=== PATIENT | male | born 1960 | race Caucasian/White ===

== ENCOUNTER 2016-08-04 06:41 | Emergency (ER) | payer BC ==
[2016-08-04 06:53] VITALS: BP 128/92
[2016-08-04] MEDS ORDERED: methylPREDNISolone Sodium Succinate 125 MG/2 ML SDV IM ONE (07:16)
[2016-08-04] MEDS ORDERED: HYDROmorphone 1 MG/ML Syringe IM ONE (07:17)
--- NOTE | 2016-08-04 07:24 | EDM.PDOC ---
ED HPI GENERAL MEDICAL PROBLEM - General Chief Complaint: Lower Extremity Injury/Pain Stated Complaint: SWOLLEN/PAINFUL FEET Time Seen by Provider: 08/04/16 06:55 Source of Information: Reports: Patient History Limitations: Reports: No Limitations - History of Present Illness INITIAL COMMENTS - FREE TEXT/NARRATIVE: The patient presents with a gout flair. He has pain in both feet and pain to his right 2nd MCP. This started last night. He has no fever, chills, cough, chest pain, shortness of breath, abdominal pain nausea or vomiting. He has a kidney transplant about 12 years ago. He has no had a flair of his gout in awhile. He has no injury. Onset: Gradual Duration: Day(s): Location: Reports: Upper Extremity, Right (2nd MCP), Lower Extremity, Left, Lower Extremity, Right Quality: Reports: Sharp Severity: Severe Improves with: Reports: None Worsens with: Reports: Movement Associated Symptoms: Reports: No Other Symptoms Bilateral Feet Pain Score (Numeric/FACES): 10 - Related Data Allergies Allergy/AdvReac Type Severity Reaction Status Date / Time allopurinol Allergy Hives Verified 08/04/16 06:54 cephalexin Allergy Hives Verified 08/04/16 06:54 levofloxacin Allergy Hives Verified 08/04/16 06:54 Home Meds: Home Meds Metoprolol Succinate 0 mg PO DAILY 11/22/14 [History] Tacrolimus [Prograf] 1 mg PO BID 11/22/14 [History] Warfarin Sodium [Coumadin] 7.5 mg PO SUMOTUWETHFR 11/22/14 [History] Warfarin [Coumadin] 5 mg PO SA 11/22/14 [History] predniSONE 20 mg PO DAILY 11/22/14 [History] Cyclobenzaprine [Flexeril] 10 mg PO BID PRN 08/04/16 [History] Hydrocodone/Acetaminophen [[place]ren 5-325] 1 tab PO TID PRN 08/04/16 [History] Indomethacin 50 mg PO TID PRN #20 capsule 08/04/16 [Rx] Past Medical History HEENT History: Reports: Impaired Vision Cardiovascular History: Reports: Hypertension Gastrointestinal History: Reports: GERD Genitourinary History: Reports: Other (See Below) Other Genitourinary History: right kidney transplant 2005 - Past Surgical History GI Surgical History: Reports: Appendectomy Social & Family History - Tobacco Use Smoking Status *Q: Former Smoker Years of Tobacco use: 15 Used Tobacco, but Quit: Yes Month Tobacco Last Used: 20 years Second Hand Smoke Exposure: No - Caffeine Use Caffeine Use: Reports: Coffee - Alcohol Use Days Per Week of Alcohol Use: 0 - Recreational Drug Use Recreational Drug Use: No Review of Systems - Review of Systems Review Of Systems: See Below Constitutional: Reports: No Symptoms Eyes: Reports: No Symptoms Ears: Reports: No Symptoms Nose: Reports: No Symptoms Mouth/Throat: Reports: No Symptoms Respiratory: Reports: No Symptoms Cardiovascular: Reports: No Symptoms GI/Abdominal: Reports: No Symptoms Genitourinary: Reports: No Symptoms Musculoskeletal: Reports: Other (Bilateral foot pain and right 2nd CMP pain) ED EXAM, GENERAL - Physical Exam Exam: See Below Exam Limited By: No Limitations General Appearance: Alert, No Apparent Distress Ears: Normal External Exam Nose: Normal Inspection Head: Atraumatic, Normocephalic Neck: Normal Inspection Respiratory/Chest: No Respiratory Distress, Lungs Clear, Normal Breath Sounds Cardiovascular: Regular Rate, Rhythm, No Edema, No Murmur GI/Abdominal: Soft, Non-Tender, No Organomegaly, No Mass Back Exam: Normal Inspection Extremities: Other (Pain upon palpation to the right and left foot with no edema or erythema. Pain upon palpation to the right, 2nd MCP joint with mild erythema and edema.) Course - Vital Signs Last Recorded V/S: Last Vital Signs Temp 98.2 F 08/04/16 06:50 Pulse 101 H 08/04/16 06:50 Resp 20 08/04/16 06:50 BP 128/92 H 08/04/16 06:50 Pulse Ox 96 08/04/16 06:50 - Orders/Labs/Meds Meds: Medications Discontinued Medications Generic Name Dose Route Start Last Admin Trade Name Freq PRN Reason Stop Dose Admin Hydromorphone HCl 1 mg 08/04/16 07:17 08/04/16 07:25 Dilaudid IM 08/04/16 07:18 1 mg ONETIME ONE Administration Methylprednisolone Sodium Succinate 125 mg 08/04/16 07:16 08/04/16 07:25 Solu-Medrol IM 08/04/16 07:17 125 mg ONETIME ONE Administration - Re-Assessments/Exams Free Text/Narrative Re-Assessment/Exam: 08/04/16 07:22 I ordered solu-medrol 125mg IM and dilaudid 1mg IM. I will get him on percocet and indomethacin. 08/04/16 08:00 He is feeling better. I will discharge him home. 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 Take the percocet as needed for pain. Take the indomethycin 3 times a day as needed for pain. Follow up with your doctor in 1 week. Please return if you are worse.
== END 2016-08-04 08:18 | disposition home or self-care (01) ==
LOC: JD.ED 06:41
DX: M10.441 Other secondary gout, right hand (principal); M79.671 Pain in right foot; M79.672 Pain in left foot; I10 Essential (primary) hypertension; K21.9 Gastro-esophageal reflux disease without esophagitis; Z87.891 Personal history of nicotine dependence; Z90.49 Acquired absence of other specified parts of digestive tract; Z94.0 Kidney transplant status; Z79.01 Long term (current) use of anticoagulants; Z79.899 Other long term (current) drug therapy; Z88.1 Allergy status to other antibiotic agents; Z88.8 Allergy status to other drugs, medicaments and biological substances
CPT/HCPCS: 96372; 99283; J1170; J2930

== ENCOUNTER 2017-01-06 04:23 | Emergency (ER) | payer BC ==
[2017-01-06 04:34] VITALS: BP 134/89
[2017-01-06] MEDS ORDERED: Ketorolac 30 MG/ML SDV IM ONE (05:08)
--- NOTE | 2017-01-06 05:17 | EDM.PDOC ---
ED HPI GENERAL MEDICAL PROBLEM - General Chief Complaint: Upper Extremity Injury/Pain Stated Complaint: shoulder pain Time Seen by Provider: 01/06/17 04:47 Source of Information: Reports: Patient, RN Notes Reviewed - History of Present Illness INITIAL COMMENTS - FREE TEXT/NARRATIVE: 56-year-old male with left shoulder pain that started 2 days ago. The pain is primarily anterior aspect of left shoulder. No recent fall or injury. Pain is much worse with motion. Ever he also does have pain at rest. He states he had rotator cuff type surgery on the shoulder many years ago. No distal weakness, numbness or tingling. No chest pain or difficulty breathing. Left Shoulder Pain Score (Numeric/FACES): 10 - Related Data Allergies Allergy/AdvReac Type Severity Reaction Status Date / Time allopurinol Allergy Hives Verified 01/06/17 04:38 cephalexin Allergy Hives Verified 01/06/17 04:38 levofloxacin Allergy Hives Verified 01/06/17 04:38 Home Meds: Home Meds Metoprolol Succinate 0 mg PO DAILY 11/22/14 [History] Tacrolimus [Prograf] 1 mg PO BID 11/22/14 [History] Warfarin Sodium [Coumadin] 7.5 mg PO MOTUWE 11/22/14 [History] Warfarin [Coumadin] 5 mg PO SUTHFRSA 11/22/14 [History] predniSONE 20 mg PO DAILY 11/22/14 [History] Cyclobenzaprine [Flexeril] 10 mg PO BID PRN 08/04/16 [History] Multivitamin [Multi-Vitamin Daily] 1 tab PO DAILY 01/06/17 [History] Non-Formulary Medication [NF Drug] 1 tab PO ASDIRECTED 01/06/17 [History] Omeprazole Magnesium [Prilosec Otc] 20 mg PO DAILY 01/06/17 [History] Past Medical History HEENT History: Reports: Impaired Vision Cardiovascular History: Reports: Hypertension Gastrointestinal History: Reports: GERD Genitourinary History: Reports: Other (See Below) Other Genitourinary History: right kidney transplant 2005 - Past Surgical History GI Surgical History: Reports: Appendectomy Social & Family History - Family History Family Medical History: Noncontributory - Tobacco Use Smoking Status *Q: Never Smoker Years of Tobacco use: 15 Used Tobacco, but Quit: Yes Month Tobacco Last Used: 20 years Second Hand Smoke Exposure: No - Caffeine Use Caffeine Use: Reports: Coffee - Alcohol Use Days Per Week of Alcohol Use: 7 Number of Drinks Per Day: 1 Total Drinks Per Week: 7 - Recreational Drug Use Recreational Drug Use: No Review of Systems - Review of Systems Review Of Systems: See Below Constitutional: Denies: Chills, Fever Mouth/Throat: Reports: No Symptoms Respiratory: Denies: Shortness of Breath Cardiovascular: Denies: Chest Pain GI/Abdominal: Denies: Abdominal Pain, Nausea, Vomiting Musculoskeletal: Reports: Shoulder Pain (Left). Denies: Joint Swelling Skin: Reports: No Symptoms. Denies: Erythema Neurological: Denies: Numbness, Tingling, Weakness ED EXAM, GENERAL - Physical Exam Exam: See Below General Appearance: Alert, Mild Distress Throat/Mouth: Normal Inspection Head: Atraumatic. No: Facial Swelling Neck: Supple, Full Range of Motion Respiratory/Chest: No Respiratory Distress, Lungs Clear, Normal Breath Sounds Cardiovascular: Regular Rate, Rhythm Extremities: Other (Patient is very tender over the left anterior shoulder and also does have mild tenderness laterally. Pain is worse with all types of motion. No warmth erythema or visible deformity, remainder of arm is nontender, elbow nontender. No Distal swelling.). No: Increased Warmth, Redness Neurological: Alert, Oriented, No Motor/Sensory Deficits Skin Exam: Warm, Dry, Normal Color Course - Vital Signs Last Recorded V/S: Last Vital Signs Temp 98.6 F 01/06/17 04:31 Pulse 102 H 01/06/17 04:31 Resp 16 01/06/17 04:31 BP 134/89 01/06/17 04:31 Pulse Ox 98 01/06/17 04:31 - Orders/Labs/Meds Meds: Medications Discontinued Medications Generic Name Dose Route Start Last Admin Trade Name Sunil PRN Reason Stop Dose Admin Ketorolac Tromethamine 30 mg 01/06/17 05:08 01/06/17 05:17 Toradol IM 01/06/17 05:09 30 mg ONETIME ONE Administration - Re-Assessments/Exams Free Text/Narrative Re-Assessment/Exam: 01/06/17 05:25 Have given 1 dose of Toradol 30 mg IM. He has been taking Tylenol without meaningful relief. He has history of a kidney transplant so I cannot put him on regular dose anti-inflammatories. I have written a prescription to [facility] for hydrocodone to take one tablet 4-6 hours when necessary severe pain. Discharge instructions as documented Departure - Departure Time of Disposition: 05:14 Disposition: Home, Self-Care 01 Condition: Fair Clinical Impression: Shoulder pain, left Qualifiers: Chronicity: acute Qualified Code(s): M25.512 - Pain in left shoulder - Discharge Information Referrals: Perfecto Andrade Jr, MD [Primary Care Provider] - Forms: ED Department Discharge Additional Instructions: Rest arm and shoulder, alternate ice and heat several times daily, Tylenol every 6-8 hours for mild to moderate discomfort or hydrocodone if needed for more severe pain. Do not take Tylenol and hydrocodone at the same time, do not drive or work when taking hydrocodone. See Dr. Andrade at clinic in 3-4 days if not much better within 2-3 days. Physical therapy is an option that also may be of help if not resolving with rest and time.
== END 2017-01-06 05:40 | disposition home or self-care (01) ==
LOC: JD.ED 04:23
DX: M25.512 Pain in left shoulder (principal); Z88.1 Allergy status to other antibiotic agents; Z79.01 Long term (current) use of anticoagulants; Z79.899 Other long term (current) drug therapy
CPT/HCPCS: 96372; 99283; J1885

== ENCOUNTER 2017-04-22 10:57 | Emergency (ER) | payer BC ==
[2017-04-22 11:14] VITALS: BP 125/92
[2017-04-22] MEDS ORDERED: Sodium Chloride 0.9% 1,000 ML IV ONE (11:41)
[2017-04-22] MEDS ORDERED: Sodium Chloride 0.9% 10 ML Syringe FLUSH PRN (11:41)
[2017-04-22] MEDS ORDERED: Ondansetron 4 MG/2 ML SDV IVPUSH ONE (11:44)
[2017-04-22] MEDS ORDERED: HYDROmorphone 0.5 MG/0.5 ML SYRINGE IVPUSH ONE (11:44)
--- NOTE | 2017-04-22 12:04 | EDM.PDOC ---
ED HPI GENERAL MEDICAL PROBLEM - General Chief Complaint: Upper Extremity Injury/Pain Stated Complaint: LEFT HAND AND ELBOW SWELLING Time Seen by Provider: 04/22/17 11:28 Source of Information: Reports: Patient History Limitations: Reports: No Limitations - History of Present Illness INITIAL COMMENTS - FREE TEXT/NARRATIVE: Patient is a 57 y/o male with history of kidney transplant on prednisone who presents to the ED. complaining of left shoulder, elbow and thumb pain for the past 3 days. Symptoms have progressively gotten worse. Has increased pain with flexing/extending elbow and thumb. Noted increased warmth to elbow and thumb with faint redness. Pain is mostly to the posterior aspect of the elbow. He is unable to close his right hand due to swelling. No history of DVT is on coumadin with therapeutic INR 2 wks ago for mechanical aortic valve. Shunt to the left bicep is unaffected. Hx of gout that has in the past affected his feet. He is on no nsaids due to kidney issues. Takes no allopurinol since he is allergic to it. Pain is sharp, constant, with waxing and waning. He has no history of cellulitis. He denies any fever, sob, n/v, chills, rigors, or any additional complaints. left arm/elbow/hand Pain Score (Numeric/FACES): 10 - Related Data Allergies Allergy/AdvReac Type Severity Reaction Status Date / Time allopurinol Allergy Hives Verified 04/22/17 11:14 cephalexin Allergy Hives Verified 04/22/17 11:14 levofloxacin Allergy Hives Verified 04/22/17 11:14 Home Meds: Home Meds Metoprolol Succinate 0 mg PO DAILY 11/22/14 [History] Tacrolimus [Prograf] 1 mg PO BID 11/22/14 [History] Warfarin Sodium [Coumadin] 7.5 mg PO MOTUWE 11/22/14 [History] Warfarin [Coumadin] 5 mg PO SUTHFRSA 11/22/14 [History] predniSONE 20 mg PO DAILY 11/22/14 [History] Cyclobenzaprine [Flexeril] 10 mg PO BID PRN 08/04/16 [History] Multivitamin [Multi-Vitamin Daily] 1 tab PO DAILY 01/06/17 [History] Omeprazole Magnesium [Prilosec Otc] 20 mg PO DAILY 01/06/17 [History] Acetaminophen/HYDROcodone [[place] 325-5 MG] 1 tab PO Q6H PRN #15 tablet 04/22/17 [Rx] Escitalopram [Lexapro] 10 mg PO DAILY 04/22/17 [History] Ferrous Sulfate 325 mg PO BIDMEALS 04/22/17 [History] Lisinopril 5 mg PO DAILY 04/22/17 [History] Past Medical History HEENT History: Reports: Impaired Vision Cardiovascular History: Reports: Hypertension Other Cardiovascular History: AVR, CABG x 1 2011 Gastrointestinal History: Reports: GERD Genitourinary History: Reports: Renal Disease, Other (See Below) Other Genitourinary History: right kidney transplant 2006 Musculoskeletal History: Reports: Other (See Below) Other Musculoskeletal History: uppar arm pain Psychiatric History: Reports: Depression Hematologic History: Reports: Anticoagulation Therapy Dermatologic History: Reports: Other (See Below) Other Dermatologic History: rashes - Past Surgical History GI Surgical History: Reports: Appendectomy Musculoskeletal Surgical History: Reports: Shoulder Surgery Social & Family History - Family History Family Medical History: Noncontributory - Tobacco Use Smoking Status *Q: Former Smoker Years of Tobacco use: 15 Used Tobacco, but Quit: No Month Tobacco Last Used: 20 years Second Hand Smoke Exposure: No - Caffeine Use Caffeine Use: Reports: Coffee - Alcohol Use Days Per Week of Alcohol Use: 7 Number of Drinks Per Day: 1 Total Drinks Per Week: 7 - Recreational Drug Use Recreational Drug Use: No Review of Systems - Review of Systems Review Of Systems: See Below Constitutional: Reports: No Symptoms Respiratory: Reports: No Symptoms, Pleuritic Chest Pain (left lateral/upper chest discomfort, subsiding. ). Denies: Shortness of Breath Cardiovascular: Reports: No Symptoms GI/Abdominal: Reports: No Symptoms Genitourinary: Reports: No Symptoms Musculoskeletal: Reports: Arm Pain (Left elbow and also left thumb/wrist.), Joint Swelling (left mcp) Skin: Reports: Erythema (Posterior aspect of left elbow, and MCP of the left thumb with swelling.) Neurological: Reports: No Symptoms. Denies: Numbness, Tingling ED EXAM, GENERAL - Physical Exam Exam: See Below Exam Limited By: No Limitations General Appearance: Alert, WD/WN, No Apparent Distress Ears: Hearing Grossly Normal Nose: Normal Inspection Throat/Mouth: Normal Voice, No Airway Compromise Head: Atraumatic, Normocephalic Neck: Normal Inspection, Supple, Non-Tender, Full Range of Motion Respiratory/Chest: No Respiratory Distress, Lungs Clear, Normal Breath Sounds, No Accessory Muscle Use, Chest Non-Tender Cardiovascular: Normal Peripheral Pulses, Regular Rate, Rhythm GI/Abdominal: Normal Bowel Sounds, Soft, Non-Tender, No Organomegaly Course - Vital Signs Last Recorded V/S: Last Vital Signs Temp 98.2 F 04/22/17 11:02 Pulse 100 04/22/17 11:02 Resp 18 04/22/17 11:02 BP 125/92 H 04/22/17 11:02 Pulse Ox 96 04/22/17 11:02 - Orders/Labs/Meds Labs: Laboratory Tests 04/22/17 04/22/17 04/22/17 Range/Units 11:50 11:50 11:50 WBC 14.01 H (4.23-9.07) K/mm3 RBC 4.52 L (4.63-6.08) M/mm3 Hgb 13.6 L (13.7-17.5) gm/L Hct 40.5 (40.1-51.0) % MCV 89.6 (79.0-92.2) fl MCH 30.1 (25.7-32.2) pg MCHC 33.6 (32.2-35.5) g/dl RDW Std Deviation 41.5 (35.1-43.9) fL Plt Count 190 (163-337) K/mm3 MPV 10.8 (9.4-12.3) fl Neut % (Auto) 74.8 H (34.0-67.9) % Lymph % (Auto) 12.5 L (21.8-53.1) % [place] % (Auto) 11.2 (5.3-12.2) % Eos % (Auto) 0.8 (0.8-7.0) Baso % (Auto) 0.3 (0.1-1.2) % Neut # (Auto) 10.49 H (1.78-5.38) K/mm3 Lymph # (Auto) 1.75 (1.32-3.57) K/mm3 [place] # (Auto) 1.57 H (0.30-0.82) K/mm3 Eos # (Auto) 0.11 (0.04-0.54) K/mm3 Baso # (Auto) 0.04 (0.01-0.08) K/mm3 Manual Slide Review Abnormal smear ESR 38 H (0-15) mm/hr PT (8.0-13.0) SECONDS INR Sodium 135 L (136-145) mEq/L Potassium 4.4 (3.5-5.1) mEq/L Chloride 100 (98-107) mEq/L Carbon Dioxide 21 (21-32) mEq/L Anion Gap 18.4 H (5-15) BUN 25 H (7-18) mg/dL Creatinine 1.3 (0.7-1.3) mg/dL Est Cr Clr Drug Dosing 43.27 mL/min Estimated GFR (MDRD) 57 (>60) mL/min BUN/Creatinine Ratio 19.2 H (14-18) Glucose 112 H (74-106) mg/dL Lactic Acid (0.4-2.0) mmol/L Uric Acid 9.3 H (3.5-7.2) mg/dL Calcium 9.4 (8.5-10.1) mg/dL Total Bilirubin 1.1 H (0.2-1.0) mg/dL AST 19 (15-37) U/L ALT 22 (16-63) U/L Alkaline Phosphatase 60 (46-116) U/L C-Reactive Protein 12.5 H* (<1.0) mg/dL Total Protein 7.5 (6.4-8.2) g/dl Albumin 3.5 (3.4-5.0) g/dl Globulin 4.0 gm/dL Albumin/Globulin Ratio 0.9 L (1-2) 04/22/17 04/22/17 Range/Units 11:50 11:50 WBC (4.23-9.07) K/mm3 RBC (4.63-6.08) M/mm3 Hgb (13.7-17.5) gm/L Hct (40.1-51.0) % MCV (79.0-92.2) fl MCH (25.7-32.2) pg MCHC (32.2-35.5) g/dl RDW Std Deviation (35.1-43.9) fL Plt Count (163-337) K/mm3 MPV (9.4-12.3) fl Neut % (Auto) (34.0-67.9) % Lymph % (Auto) (21.8-53.1) % [place] % (Auto) (5.3-12.2) % Eos % (Auto) (0.8-7.0) Baso % (Auto) (0.1-1.2) % Neut # (Auto) (1.78-5.38) K/mm3 Lymph # (Auto) (1.32-3.57) K/mm3 [place] # (Auto) (0.30-0.82) K/mm3 Eos # (Auto) (0.04-0.54) K/mm3 Baso # (Auto) (0.01-0.08) K/mm3 Manual Slide Review ESR (0-15) mm/hr PT 16.6 H (8.0-13.0) SECONDS INR 1.54 Sodium (136-145) mEq/L Potassium (3.5-5.1) mEq/L Chloride (98-107) mEq/L Carbon Dioxide (21-32) mEq/L Anion Gap (5-15) BUN (7-18) mg/dL Creatinine (0.7-1.3) mg/dL Est Cr Clr Drug Dosing mL/min Estimated GFR (MDRD) (>60) mL/min BUN/Creatinine Ratio (14-18) Glucose (74-106) mg/dL Lactic Acid 0.9 (0.4-2.0) mmol/L Uric Acid (3.5-7.2) mg/dL Calcium (8.5-10.1) mg/dL Total Bilirubin (0.2-1.0) mg/dL AST (15-37) U/L ALT (16-63) U/L Alkaline Phosphatase (46-116) U/L C-Reactive Protein (<1.0) mg/dL Total Protein (6.4-8.2) g/dl Albumin (3.4-5.0) g/dl Globulin gm/dL Albumin/Globulin Ratio (1-2) Meds: Medications Discontinued Medications Generic Name Dose Route Start Last Admin Trade Name Freq PRN Reason Stop Dose Admin Hydromorphone HCl 0.5 mg 04/22/17 11:44 04/22/17 11:55 Dilaudid IVPUSH 04/22/17 11:45 0.5 mg ONETIME ONE Administration Sodium Chloride 1,000 mls @ 250 mls/hr 04/22/17 11:41 04/22/17 11:50 Normal Saline IV 04/22/17 15:40 250 mls/hr ONETIME ONE Administration Ondansetron HCl 4 mg 04/22/17 11:44 04/22/17 11:54 Zofran IVPUSH 04/22/17 11:45 4 mg ONETIME ONE Administration Sodium Chloride 10 ml 04/22/17 11:41 04/22/17 11:50 Saline Flush FLUSH 10 ml ASDIRECTED PRN Administration Keep Vein Open - Re-Assessments/Exams Free Text/Narrative Re-Assessment/Exam: IV established with normal saline 250 mL per hour, Dilaudid 0.5 mg IVP, Zofran 4 mg IVP. Initial labs and studies will include CBC, chem 14, blood culture 2, CRP, CBC, ESR, uric acid, chest x-ray one view, and VL duplex of the left upper extremity. Called Dr. Butcher and left message. Dr. Butcher has arrived to the E.D. Evaluated the patient in the E.D. Suggested Tapping the joint to rule out septic joint and or gout flareup. Tapped the joint utilizing sterile precautions with no fluid present. No complications noted. CXR: no acute findings noted. Left upper extremity venous ultrasound: Duplex and color flow imaging was obtained of the left internal jugular, subclavian, axillary, brachial, basilic, cephalic, radial and ulnar veins. Findings: Cephalic vein is occluded. This contains echogenic material and is felt to be due to chronic occlusion with fibrosis. Other veins show normal phasic flow, augmentation and compression. Additional images were obtained overlying the olecranon process. Heterogeneous abnormality is seen posterior to the olecranon process measuring 3.2 x 2.0 x 2.7 cm. Uncertain as to etiology. Differential includes hematoma as well as infection, soft tissue mass felt to be unlikely. Prominent scar tissue is also within the differential. Impression: 1. Heterogeneous abnormality with measurements as noted above, adjacent to the olecranon process. 2. No evidence of acute venous thrombosis within the left upper extremity. 3. 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 Labs reviewed: White blood count slightly elevated 14.01, hemoglobin 13.6, neutrophil percentage is 74.8, neutrophil number is 10.49, ESR is 38, AG 18.4, by mouth 25, creatinine 1.3, glucose 112, lactic acid 0.9, CRP 12.5. Uric Acid was 9.3. Differential diagnosis cellulitis/gout attack. [address] Butcher. Reviewed labs and ultrasound with him. Suggested follow-up in the clinic tomorrow with him for reevaluation. Sling the affected extremity with pain control. Will add a medro Dosepak on top of his daily prednisone doses. In addition he'll receive [place] on discharge. Patient will not receive any NSAIDs due to his kidney condition. 04/22/17 15:28 INR is 1.54. This INR is subtherapeutic. He should be a 2.5-3.5 with mechanical aortic valve replacement. Prior to results patient had already left. I tried calling the number provided but the post male was full. Will try again. I did speak with the patient. Advised him to take warfarin 7.5 mg Friday, , Friday, and Friday. Take 5 mg remainder of the days. Follow-up with PCP this Friday for recheck of INR. Additional modification of warfarin dosage would be initiated at that time. Departure - Departure Time of Disposition: 14:59 Disposition: Home, Self-Care 01 Condition: Good Clinical Impression: Elbow pain, left, Pain of left thumb Gout attack Qualifiers: Gout site: hand Gout etiology: other secondary cause Laterality: right Qualified Code(s): M10.441 - Other secondary gout, right hand Cellulitis Qualifiers: Site of cellulitis: extremity Site of cellulitis of extremity: upper extremity Laterality: right Qualified Code(s): L03.113 - Cellulitis of right upper limb - Discharge Information Prescriptions: Acetaminophen/HYDROcodone [[place] 325-5 MG] 1 tab PO Q6H PRN #15 tablet PRN Reason: Pain (Severe 7-10) Instructions: Cellulitis, Adult, How to Use a Sling, [id number], Cellulitis, Adult, [id number], Gout, Pain Medicine Instructions, [id number] Referrals: Perfecto Andrade Jr, MD [Primary Care Provider] - Forms: ED Department Discharge Additional Instructions: Wear the arm sling as needed for left elbow discomfort. Unclear if you have a gout attack or this is cellulitis. Dr. Butcher will see you tomorrow in his clinic. Call and make an appointment today to be seen. Will increase your prednisone with a Medrol Dosepak. Take as prescribed. This has been phoned into your pharmacy. pharmacy. In addition for pain take [place] one tab every 6 hours as needed for pain. Do not drive while taking the [place]. Return to the ED if you develop any new or worsening symptoms as discussed. ED JOINT ASPIRATION PROCEDURE - Joint Apsiration/Arthrocentesis Site: left elbow Skin prep: Chlorhexidine (Hibiciens) Aspiration needle size: 18g Aspirate appearance: other (none) Dressing: adhesive dressing Complications: No Progress/Comments: Joint aspiration approach lateral aspect marked out by Dr. Butcher with no signs of infection present.
--- NOTE | 2017-04-22 12:27 | CR ---
Chest: Frontal view of the chest was obtained. Comparison: Prior chest x-ray of 01/19/11. Heart size is normal. Tortuous thoracic aorta is seen. Slight atelectasis is noted within the left base. Lungs otherwise are clear. Previous left shoulder surgery is noted. Previous sternotomy is noted. Impression: 1. Atelectasis within the left lung base. Other incidental findings. 2. Nothing acute is seen. Diagnostic code #2
--- NOTE | 2017-04-22 14:44 | US ---
Left upper extremity venous ultrasound: Duplex and color flow imaging was obtained of the left internal jugular, subclavian, axillary, brachial, basilic, cephalic, radial and ulnar veins. Findings: Cephalic vein is occluded. This contains echogenic material and is felt to be due to chronic occlusion with fibrosis. Other veins show normal phasic flow, augmentation and compression. Additional images were obtained overlying the olecranon process. Heterogeneous abnormality is seen posterior to the olecranon process measuring 3.2 x 2.0 x 2.7 cm. Uncertain as to etiology. Differential includes hematoma as well as infection, soft tissue mass felt to be unlikely. Prominent scar tissue is also within the differential. Impression: 1. Heterogeneous abnormality with measurements as noted above, adjacent to the olecranon process. 2. No evidence of acute venous thrombosis within the left upper extremity. 3. 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 Diagnostic code #2
== END 2017-04-22 15:13 | disposition home or self-care (01) ==
LOC: JD.ED 10:57
DX: L03.113 Cellulitis of right upper limb (principal); M10.441 Other secondary gout, right hand; I82.890 Acute embolism and thrombosis of other specified veins; I10 Essential (primary) hypertension; K21.9 Gastro-esophageal reflux disease without esophagitis; Z88.1 Allergy status to other antibiotic agents; Z88.8 Allergy status to other drugs, medicaments and biological substances; Z79.01 Long term (current) use of anticoagulants; Z79.899 Other long term (current) drug therapy; Z95.1 Presence of aortocoronary bypass graft; Z98.890 Other specified postprocedural states; Z87.891 Personal history of nicotine dependence
CPT/HCPCS: 20605; 36415; 71045; 80053; 83605; 84550; 85025; 85610; 85652; 86140; 87040; 93971; 96361; 96374; 96375; 99284; J1170; J2405; J7040; J7050

== ENCOUNTER 2018-03-01 16:44 | Emergency (ER) | payer BC, OTHER ==
--- NOTE | 2018-03-01 17:10 | EDM.PDOC ---
ED HPI GENERAL MEDICAL PROBLEM - General Chief Complaint: Neurological Problem Stated Complaint: weakness Rt arm Time Seen by Provider: 03/01/18 17:00 Source of Information: Reports: Patient History Limitations: Reports: No Limitations - History of Present Illness INITIAL COMMENTS - FREE TEXT/NARRATIVE: 58-year-old male presents to the ED with acute onset of right arm weakness. He developed sudden onset of flaccid hemiparesis of his right upper extremity. He states he can still walk although his balance and gait were not quite normal. Her about 15-20 minutes before coming to the ED. No associated headache nausea or vomiting. Of note the patient is on Coumadin chronically due to an artificial mechanical aortic valve. This was placed in 2001. Last INR was checked about a month ago. Is due for check this coming week. No recent falls or closed head injuries. Onset: Today Onset Date: 03/01/18 Onset Time: 16:40 Duration: Minutes: Location: Reports: Upper Extremity, Right (Right upper extremity was completely flaccid initially but started to regain some function in fact could hold it against the effect of gravity at the time of my exam.), Lower Extremity, Right ( Right lower extremity was also a little weak as he had some difficulty ambulating into the department.) Severity: Moderate (Patient states the right upper extremity is somewhat numb and tingly.) Improves with: Reports: Other (Dea started to improve once he hit the ED.) Worsens with: Reports: None Context: Denies: Activity, Exercise, Lifting, Sick Contact, Trauma, Other Associated Symptoms: Denies: No Other Symptoms, Chest Pain, Cough, cough w sputum, Diaphoresis, Fever/Chills, Headaches, Loss of Appetite, Malaise, Nausea/ Vomiting, Rash, Seizure, Shortness of Breath, Syncope, Weakness 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) (None.) - Related Data Allergies Allergy/AdvReac Type Severity Reaction Status Date / Time allopurinol Allergy Hives Verified 12/17/17 15:10 cephalexin Allergy Hives Verified 12/17/17 15:10 levofloxacin Allergy Hives Verified 12/17/17 15:10 Home Meds: Home Meds Metoprolol Succinate 0 mg PO DAILY 11/22/14 [History] Tacrolimus [Prograf] 1 mg PO BID 11/22/14 [History] Warfarin Sodium [Coumadin] 7.5 mg PO MOTUWE 11/22/14 [History] Warfarin [Coumadin] 5 mg PO SUTHFRSA 11/22/14 [History] predniSONE 20 mg PO DAILY 11/22/14 [History] Cyclobenzaprine [Flexeril] 10 mg PO BID PRN 08/04/16 [History] Multivitamin [Multi-Vitamin Daily] 1 tab PO DAILY 01/06/17 [History] Omeprazole Magnesium [Prilosec Otc] 20 mg PO DAILY 01/06/17 [History] Acetaminophen/HYDROcodone [[place] 325-5 MG] 1 tab PO Q6H PRN #15 tablet 04/22/17 [Rx] Escitalopram [Lexapro] 10 mg PO DAILY 04/22/17 [History] Ferrous Sulfate 325 mg PO BIDMEALS 04/22/17 [History] Lisinopril 5 mg PO DAILY 04/22/17 [History] Febuxostat [Uloric] 40 mg PO DAILY #30 tablet 12/17/17 [Rx] oxyCODONE HCl/Acetaminophen [Percocet 5-325 mg Tablet] 1 - 2 each PO Q4H PRN # 30 tablet 12/17/17 [Rx] Past Medical History HEENT History: Reports: Impaired Vision Cardiovascular History: Reports: Heart Valve Replacement (Category aortic valve replacement and CABG in 2011), Hypertension Other Cardiovascular History: AVR, CABG x 1 2011 Gastrointestinal History: Reports: GERD Genitourinary History: Reports: Renal Disease, Other (See Below) Other Genitourinary History: right kidney transplant 2005. He was AV shunt left biceps area is no longer functioning. Musculoskeletal History: Reports: Other (See Below) Other Musculoskeletal History: uppar arm pain Psychiatric History: Reports: Depression Hematologic History: Reports: Anticoagulation Therapy Dermatologic History: Reports: Other (See Below) Other Dermatologic History: rashes - Past Surgical History GI Surgical History: Reports: Appendectomy Musculoskeletal Surgical History: Reports: Shoulder Surgery Social & Family History - Family History Family Medical History: Noncontributory - Caffeine Use Caffeine Use: Reports: Coffee - Living Situation & Occupation Living situation: Reports: Single, with Significant Other Occupation: Employed [employer] [facility] - Review of Systems Review Of Systems: See Below Constitutional: Denies: Fever, Chills, Malaise, Weakness, Fatigue, Decreased Appetite, Weight Loss HEENT: Reports: No Symptoms Respiratory: Reports: No Symptoms Cardiovascular: Reports: No Symptoms. Denies: Chest Pain, Blood Pressure Problem Endocrine: Reports: No Symptoms GI/Abdominal: Reports: No Symptoms : Reports: No Symptoms Musculoskeletal: Reports: Other Skin: Reports: No Symptoms (Right upper extremity weakness.) Neurological: Reports: Numbness, Paresthesia (upper extremity), Tingling (Right upper extremity), Difficulty Walking (Very minimal difficulty walking.), Weakness. Denies: Change in Speech, Gait Disturbance Psychiatric: Reports: No Symptoms (Weakness with flaccidity initially of his right upper extremity.) Hematologic/Lymphatic: Reports: No Symptoms Immunologic: Reports: No Symptoms ED EXAM, NEURO - Physical Exam Exam: See Below Exam Limited By: No Limitations General Appearance: Alert, WD/WN, No Apparent Distress Eye Exam: Bilateral Eye: Normal Inspection Throat/Mouth: Normal Inspection, Normal Lips, Normal Teeth, Normal Oropharynx Head Exam: Atraumatic, Normocephalic Neck: Normal Inspection, Supple, Non-Tender, Full Range of Motion. No: Lymphadenopathy (L), Lymphadenopathy (R) Respiratory/Chest: No Respiratory Distress, Lungs Clear, Normal Breath Sounds, No Accessory Muscle Use Cardiovascular: Normal Peripheral Pulses, Regular Rate, Rhythm, No Edema, No Gallop, No Rub, Other (Healed midline sternal sternotomy incision. Has a audible click at the aortic valve listing post.) GI/Abdominal: Normal Bowel Sounds, Soft, Non-Tender, No Organomegaly, No Abnormal Bruit, No Mass, Pelvis Stable Neurological: Alert, Normal Mood/Affect, Normal Dorsiflexion, CN II-XII Intact, Oriented x 3, Abnormal Finger to Nose, Abnormal Motor (Grade 3 motor power and tone right upper extremity can hold it above gravity but is weak and ataxic. He cannot do finger to nose assessment on the right side.), Other (Right lower extremity had normal motor power and tone. He is very ticklish feet and therefore Babinski's were equivocal.). No: Normal Reflexes DTR: 1+: Bicep (R), 2+: Bicep (L), Patella (R), Patella (L), Achilles (R), Achilles (L) Back Exam: Normal Inspection, Full Range of Motion Extremities: Normal Inspection, Normal Range of Motion, Non-Tender, No Pedal Edema Psychiatric: Normal Affect, Normal Mood Skin Exam: Warm, Dry, Intact, Normal Color, No Rash EKG INTERPRETATION EKG Date: 03/01/18 Time: 17:12 Rhythm: NSR Rate (Beats/Min): 95 Finger: LAD-Left Finger Deviation (Mild left axis deviation of -12) P-Wave: Enlarged (Consider left atrial hypertrophy.) QRS: Other (Early R-wave transition suggesting right ventricular hypertrophy versus septal hypertrophy pattern. Near Q-wave 3 and aVF. Severe old inferior wall myocardial infarction) ST-T: Other (Diffuse early repolarization pattern. T wave flattening and slight inversion aVL only.) QT: Normal EKG Interpretation Comments: Abnormal ECG Course - Vital Signs Last Recorded V/S: Last Vital Signs Temp 36.5 C 03/01/18 17:00 Pulse 98 03/01/18 17:00 Resp 20 03/01/18 17:00 BP 142/99 H 03/01/18 17:00 Pulse Ox 95 03/01/18 17:00 - Orders/Labs/Meds Orders: Active Orders 24 hr Category Date Time Status EKG Documentation Completion [RC] STAT Care 03/01/18 17:13 Active ABO/RH TYPE [BBK] Stat Lab 03/01/18 17:00 Results PATIENT RETYPE [BBK] Stat Lab 03/01/18 17:00 Results Labs: Laboratory Tests 03/01/18 03/01/18 03/01/18 Range/Units 17:00 17:00 17:00 WBC 10.44 H (4.23-9.07) K/mm3 RBC 4.89 (4.63-6.08) M/mm3 Hgb 14.5 (13.7-17.5) gm/L Hct 43.5 (40.1-51.0) % MCV 89.0 (79.0-92.2) fl MCH 29.7 (25.7-32.2) pg MCHC 33.3 (32.2-35.5) g/dl RDW Std Deviation 46.6 H (35.1-43.9) fL Plt Count 183 (163-337) K/mm3 MPV 10.6 (9.4-12.3) fl Neutrophils % (Manual) 73 H (40-60) % Band Neutrophils % 0 (0-10) % Lymphocytes % (Manual) 17 L (20-40) % Atypical Lymphs % 0 % Monocytes % (Manual) 5 (2-10) % Eosinophils % (Manual) 3 (0.8-7.0) % Basophils % (Manual) 2 H (0.2-1.2) Platelet Estimate Adequate RBC Morph Comment Normal PT 17.6 H (9.5-12.1) SECONDS INR 1.63 APTT (24-31) SECONDS Sodium 138 (136-145) mEq/L Potassium 4.0 (3.5-5.1) mEq/L Chloride 105 (98-107) mEq/L Carbon Dioxide 20 L (21-32) mEq/L Anion Gap 17.0 H (5-15) BUN 29 H (7-18) mg/dL Creatinine 1.5 H (0.7-1.3) mg/dL Est Cr Clr Drug Dosing 57.48 mL/min Estimated GFR (MDRD) 48 (>60) mL/min BUN/Creatinine Ratio 19.3 H (14-18) Glucose 139 H (74-106) mg/dL Calcium 8.8 (8.5-10.1) mg/dL Magnesium (1.8-2.4) mg/dl Total Bilirubin 0.6 (0.2-1.0) mg/dL AST 15 (15-37) U/L ALT 28 (16-63) U/L Alkaline Phosphatase 73 (46-116) U/L NT-Pro-B Natriuret Pep (0-125) pg/mL Total Protein 7.0 (6.4-8.2) g/dl Albumin 3.6 (3.4-5.0) g/dl Globulin 3.4 gm/dL Albumin/Globulin Ratio 1.1 (1-2) Blood Type 03/01/18 03/01/18 03/01/18 Range/Units 17:00 17:00 17:00 WBC (4.23-9.07) K/mm3 RBC (4.63-6.08) M/mm3 Hgb (13.7-17.5) gm/L Hct (40.1-51.0) % MCV (79.0-92.2) fl MCH (25.7-32.2) pg MCHC (32.2-35.5) g/dl RDW Std Deviation (35.1-43.9) fL Plt Count (163-337) K/mm3 MPV (9.4-12.3) fl Neutrophils % (Manual) (40-60) % Band Neutrophils % (0-10) % Lymphocytes % (Manual) (20-40) % Atypical Lymphs % % Monocytes % (Manual) (2-10) % Eosinophils % (Manual) (0.8-7.0) % Basophils % (Manual) (0.2-1.2) Platelet Estimate RBC Morph Comment PT (9.5-12.1) SECONDS INR APTT (24-31) SECONDS Sodium (136-145) mEq/L Potassium (3.5-5.1) mEq/L Chloride (98-107) mEq/L Carbon Dioxide (21-32) mEq/L Anion Gap (5-15) BUN (7-18) mg/dL Creatinine (0.7-1.3) mg/dL Est Cr Clr Drug Dosing mL/min Estimated GFR (MDRD) (>60) mL/min BUN/Creatinine Ratio (14-18) Glucose (74-106) mg/dL Calcium (8.5-10.1) mg/dL Magnesium 1.3 L (1.8-2.4) mg/dl Total Bilirubin (0.2-1.0) mg/dL AST (15-37) U/L ALT (16-63) U/L Alkaline Phosphatase (46-116) U/L NT-Pro-B Natriuret Pep 157 H (0-125) pg/mL Total Protein (6.4-8.2) g/dl Albumin (3.4-5.0) g/dl Globulin gm/dL Albumin/Globulin Ratio (1-2) Blood Type A POSITIVE 03/01/18 Range/Units 17:00 WBC (4.23-9.07) K/mm3 RBC (4.63-6.08) M/mm3 Hgb (13.7-17.5) gm/L Hct (40.1-51.0) % MCV (79.0-92.2) fl MCH (25.7-32.2) pg MCHC (32.2-35.5) g/dl RDW Std Deviation (35.1-43.9) fL Plt Count (163-337) K/mm3 MPV (9.4-12.3) fl Neutrophils % (Manual) (40-60) % Band Neutrophils % (0-10) % Lymphocytes % (Manual) (20-40) % Atypical Lymphs % % Monocytes % (Manual) (2-10) % Eosinophils % (Manual) (0.8-7.0) % Basophils % (Manual) (0.2-1.2) Platelet Estimate RBC Morph Comment PT (9.5-12.1) SECONDS INR APTT 29 (24-31) SECONDS Sodium (136-145) mEq/L Potassium (3.5-5.1) mEq/L Chloride (98-107) mEq/L Carbon Dioxide (21-32) mEq/L Anion Gap (5-15) BUN (7-18) mg/dL Creatinine (0.7-1.3) mg/dL Est Cr Clr Drug Dosing mL/min Estimated GFR (MDRD) (>60) mL/min BUN/Creatinine Ratio (14-18) Glucose (74-106) mg/dL Calcium (8.5-10.1) mg/dL Magnesium (1.8-2.4) mg/dl Total Bilirubin (0.2-1.0) mg/dL AST (15-37) U/L ALT (16-63) U/L Alkaline Phosphatase (46-116) U/L NT-Pro-B Natriuret Pep (0-125) pg/mL Total Protein (6.4-8.2) g/dl Albumin (3.4-5.0) g/dl Globulin gm/dL Albumin/Globulin Ratio (1-2) Blood Type Meds: Medications Discontinued Medications Generic Name Dose Route Start Last Admin Trade Name Sunil PRN Reason Stop Dose Admin Alteplase, Recombinant Confirm 03/01/18 17:48 03/01/18 18:54 Activase Administered 03/01/18 17:49 Not Given Dose 100 mg .ROUTE .STK-MED ONE Alteplase, Recombinant 9 mg 03/01/18 18:03 03/01/18 18:07 Activase IVPUSH 03/01/18 18:04 9 mg .BOLUS ONE Administration Alteplase, Recombinant 78 mg/ 78 mls @ 78 mls/hr 03/01/18 19:30 03/01/18 18: 09 Sterile Water IV 03/01/18 20:29 78 mls/hr ONETIME ONE Administration - Radiology Interpretation Free Text/Narrative:: 58-year-old male presents to the ED within 15-20 minutes of development of complete right arm paresis. He appreciated some difficulty walking as well with some mild right sided weakness in his leg and balance. No pulses with his speech. He denies headache nausea vomiting no visual changes. History reveals that he is on Coumadin chronically due to an artificial aortic valve. This placed in 2011 with one one arterial graft or bypass. Patient is a kidney transplant patient in 2005. States he was on dialysis for about 3 months prior to receiving a kidney. Plan CT head immediately. Routine labs including PT TNP T /INR to be done. - Re-Assessments/Exams Free Text/Narrative Re-Assessment/Exam: 03/01/18 17:31 CT head completed. I do not see any signs of intracranial bleeding or mass effect. There is no midline shift. Mild atherosclerotic calcification is seen within the left vertebral artery. On reexamination patient still feels numb from the shoulder to the fingertips he can't feel me touch him. 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 He is able to lift the arm from the gurney but not able to sustain it against gravity for more than about 7 seconds. No evidence of problems with his right lower extremity. As able to hold this up off the gurney with absolutely no problems. I'm going to speak to neurology services at [facility] to determine plan of action. 03/01/18 18:00: I did speak with on-call neurologist --and he is advised that once his INR comes back but is under 1.7 then he could be treated with thrombolytics and then transferred of course to [place]. Similarly if his INR is greater than 1.7 no thrombolytics but he will require transfer it is suspect that he probably threw a clot off of his heart or a plaque out of the carotid artery. 03/01/18 18:12: Labs reveal a total white count of 10.44. Differential 73% neutrophils and no bands. Hemoglobin is 14.5 with hematocrit of 43.5. MCV is 89.0. Platelet callus 183,000. PT was 17.6 with an INR 1.63. This is subtherapeutic. PTT was 29. Sodium 138 with a potassium of 4.0. Chloride 105 with a bicarbonate of 20. Anion gap is 17.0. BUN was 29. Creatinine is 1.5. GFR is 48. Glucose is 139. Calcium 8.8. Magnesium 1.3 low. Total bilirubin 0.6. AST 15 ALT 28. Alk phosphatase is 73. BNP was 157. Total protein was 7.0 with an albumin fraction of 3.6.His INR did come back subtherapeutic at 16.3 therefore we proceeded with AA per protocol. His weight is 97 kg. He was given a 9 mg bolus at 1807 and then the drip started at 18;12. [employer] is on their way to fly him to [place] for definitive neurosurgical management.. Departure - Departure Time of Disposition: 18:15 Disposition: DC/Tfer to Acute Hospital 02 Condition: Fair Clinical Impression: CVA (cerebral vascular accident) - Discharge Information *PRESCRIPTION DRUG MONITORING PROGRAM REVIEWED*: Not Applicable *COPY OF PRESCRIPTION DRUG MONITORING REPORT IN PATIENT HILARIA: Not Applicable Referrals: Perfecto Andrade Jr, MD [Primary Care Provider] - Forms: ED Department Discharge Additional Instructions: Patient transferred to [facility] in [place] for definitive neurological / neurosurgical treatment - My Orders Last 24 Hours: My Active Orders 03/01/18 17:00 ABO/RH TYPE [BBK] Stat PATIENT RETYPE [BBK] Stat 03/01/18 17:13 EKG Documentation Completion [RC] STAT - Assessment/Plan Last 24 Hours: My Active Orders 03/01/18 17:00 ABO/RH TYPE [BBK] Stat PATIENT RETYPE [BBK] Stat 03/01/18 17:13 EKG Documentation Completion [RC] STAT
--- NOTE | 2018-03-01 17:28 | CT ---
Head CT Technique: Multiple axial sections through the brain were obtained. Intravenous contrast was not utilized. Comparison: Previous MRI brain of 04/27/13. Findings: Ventricles along with basal cisterns and sulci over the convexities are within normal limits for the patient's age. No abnormal parenchymal densities are seen. No evidence of intracranial hemorrhage. No midline shift or mass effect is seen. Minimal atherosclerotic calcification is seen within the left vertebral artery. Bone window settings were reviewed which shows the visualized sinuses to appear clear. No acute calvarial abnormality is seen. Impression: 1. Incidental finding. Nothing acute is appreciated on noncontrast head CT study. Diagnostic code #1
[2018-03-01 19:13] VITALS: BP 142/99
[2018-03-01] MEDS ORDERED: STERILE IV ONE (19:30)
[2018-03-01] MEDS ORDERED: ALTEPLASE IV ONE (19:30)
[2018-03-01] MEDS ORDERED: WATER FOR INJECTION IV ONE (19:30)
== END 2018-03-01 18:15 ==
LOC: JD.ED 16:44
DX: I63.9 Cerebral infarction, unspecified (principal); K21.9 Gastro-esophageal reflux disease without esophagitis; F17.290 Nicotine dependence, other tobacco product, uncomplicated; Z88.8 Allergy status to other drugs, medicaments and biological substances; Z79.01 Long term (current) use of anticoagulants; Z79.899 Other long term (current) drug therapy
CPT/HCPCS: 36415; 70450; 80053; 82962; 83735; 83880; 85007; 85027; 85610; 85730; 86900; 86901; 93005; 96374; 96376; 99285; J2997; 93010

== ENCOUNTER 2018-08-01 19:55 | Emergency (ER) | payer BC, OTHER ==
[2018-08-01 20:12] VITALS: BP 125/89
[2018-08-01] MEDS ORDERED: Acetaminophen/HYDROcodone 325-5 MG Tab PO ONE (20:53)
--- NOTE | 2018-08-01 20:58 | EDM.PDOC ---
ED HPI GENERAL MEDICAL PROBLEM - General Chief Complaint: Lower Extremity Injury/Pain Stated Complaint: BOTH FEET ARE SWOLLEN Time Seen by Provider: 08/01/18 20:29 Source of Information: Reports: Patient, RN Notes Reviewed, Significant Other ( Girlfriend) History Limitations: Reports: No Limitations - History of Present Illness INITIAL COMMENTS - FREE TEXT/NARRATIVE: The patient states that he has had left ankle and right first MTP joint pain and swelling for the past 3 weeks. He states that the pain and swelling are worse today. No recent injury. No recent fever. The patient states that he has had similar symptoms many times in the past, however, he has not previously had a medical evaluation for his symptoms. The patient took 3 Tylenol just prior to coming to the ED. The patient's PCP is Dr. Perfecto Andrade. The patient has a [facility]inator [facility], whose name he does not recall. The patient sees ADRIANA Khan, at [facility], for his cardiac care. 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 Left Ankle Pain Score (Numeric/FACES): 10 - Related Data Allergies Allergy/AdvReac Type Severity Reaction Status Date / Time allopurinol Allergy Hives Verified 08/01/18 21:17 cephalexin Allergy Hives Verified 08/01/18 21:17 levofloxacin Allergy Hives Verified 08/01/18 21:17 Home Meds: Home Meds Metoprolol Succinate 0 mg PO DAILY 11/22/14 [History] Tacrolimus [Prograf] 1 mg PO BID 11/22/14 [History] Warfarin Sodium [Coumadin] 7.5 mg PO MOTUWE 11/22/14 [History] Warfarin [Coumadin] 5 mg PO SUTHFRSA 11/22/14 [History] predniSONE 20 mg PO DAILY 11/22/14 [History] Cyclobenzaprine [Flexeril] 10 mg PO BID PRN 08/04/16 [History] Multivitamin [Multi-Vitamin Daily] 1 tab PO DAILY 01/06/17 [History] Omeprazole Magnesium [Prilosec Otc] 20 mg PO DAILY 01/06/17 [History] Acetaminophen/HYDROcodone [Providence 325-5 MG] 1 tab PO Q6H PRN #15 tablet 04/22/17 [Rx] Escitalopram [Lexapro] 10 mg PO DAILY 04/22/17 [History] Ferrous Sulfate 325 mg PO BIDMEALS 04/22/17 [History] Lisinopril 5 mg PO DAILY 04/22/17 [History] Febuxostat [Uloric] 40 mg PO DAILY #30 tablet 12/17/17 [Rx] oxyCODONE HCl/Acetaminophen [Percocet 5-325 mg Tablet] 1 - 2 each PO Q4H PRN # 30 tablet 12/17/17 [Rx] Acetaminophen/HYDROcodone [Providence 325-5 MG] 1 - 2 tab PO Q6H PRN #20 tablet 08/01 [Rx] Past Medical History HEENT History: Reports: Impaired Vision Cardiovascular History: Reports: CAD, High Cholesterol, Hypertension Gastrointestinal History: Reports: GERD Genitourinary History: Reports: Renal Disease (previous ESRD on HD until kidney transplant 2005) Musculoskeletal History: Reports: Gout (suspected, not confirmed, untreated) Neurological History: Reports: 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, s/p tPA) Psychiatric History: Reports: Depression Hematologic History: Reports: Anticoagulation Therapy (Coumadin) - Past Surgical History HEENT Surgical History: Reports: Oral Surgery (wisdom teeth extraction) Cardiovascular Surgical History: Reports: Coronary Artery Bypass (x 1 vessel, 2011), Valve Replacement (mechanical aortic, 2011), Vascular Surgery (LUE AVF) GI Surgical History: Reports: Appendectomy Male Surgical History: Reports: Other (See Below) (kidney transplant 2005) Musculoskeletal Surgical History: Reports: Shoulder Surgery (bilateral, open) Social & Family History - Family History Family Medical History: Noncontributory - Tobacco Use Smoking Status *Q: Former Smoker Years of Tobacco use: 27 Packs/Tins Daily: 3 Month/Year Tobacco Last Used: Quit April 1999 - Caffeine Use Caffeine Use: Reports: Coffee, Soda, Tea - Alcohol Use Alcohol Use History: Yes Days Per Week of Alcohol Use: 3 Number of Drinks Per Day: 2 Total Drinks Per Week: 6 Alcohol Use Frequency: Socially (rarely to excess) - Recreational Drug Use Recreational Drug Use: No - Living Situation & Occupation Living situation: Reports: , with Significant Other (Girlfriend) 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 ED EXAM, GENERAL - Physical Exam Exam: See Below Exam Limited By: No Limitations General Appearance: Alert, WD/WN, No Apparent Distress Extremities: Other (Mild erythema and swelling to the right 1st MTP joint. There is tenderness to palpation of the joint, and pain is induced with minimal PROM. Neurovascular status of the right lower extremity is intact. Mild swelling without erythema to the left ankle. No pain to palpation of the ankle itself, however, pain is induced with PROM. Neurovascular status of the left lower extremity is intact.) Course - Vital Signs Last Recorded V/S: Last Vital Signs Temp 36.8 C 08/01/18 20:07 Pulse 85 08/01/18 20:07 Resp 14 08/01/18 20:07 BP 125/89 08/01/18 20:07 Pulse Ox 95 08/01/18 20:07 - Orders/Labs/Meds Meds: Medications Discontinued Medications Generic Name Dose Route Start Last Admin Trade Name Freq PRN Reason Stop Dose Admin Hydrocodone Bitart/Acetaminophen 2 tab 08/01/18 20:53 08/01/18 21:05 Providence 325-5 Mg PO 08/01/18 20:54 2 tab ONETIME ONE Administration - Re-Assessments/Exams Free Text/Narrative Re-Assessment/Exam: 08/01/18 20:53 The patient's right 1st MTP joint and left ankle pain and swelling may be due to gout, although he has never previously had an inflamed joint aspirated for definitive diagnosis. The patient is chronically on prednisone as an immunosuppressant for his kidney transplant. Since his joint pain has been going on for 3 weeks, I suggested to the patient that we do just that; that we don't do anything to treat the inflammation tonight, and that the patient then follow up with Ortho for aspiration, correct diagnosis, and ideal treatment. Alternatively, we could consider giving the patient colchicine, however, in that case, I would want to check his renal function first. The third option would be for the patient to receive an increased dose of steroids, however, I think it highly unlikely that the patient would develop gout while already on prednisone, or that additional prednisone would help, therefore I did not recommend this third option. The patient agreed with the first option. For tonight's purposes, the patient will receive some Providence, plus a prescription for the same. He will then be discharged home, and I will have him contact the office of Dr. Butcher first thing Friday. Departure - Departure Time of Disposition: 20:58 Disposition: Home, Self-Care 01 Condition: Good Clinical Impression: Polyarthritis - Discharge Information *PRESCRIPTION DRUG MONITORING PROGRAM REVIEWED*: Not Applicable *COPY OF PRESCRIPTION DRUG MONITORING REPORT IN PATIENT HILARIA: Not Applicable Prescriptions: Acetaminophen/HYDROcodone [Providence 325-5 MG] 1 - 2 tab PO Q6H PRN #20 tablet PRN Reason: Pain (Severe 7-10) Instructions: Arthritis Referrals: Perfecto Andrade Jr, MD [Primary Care Provider] - Bhupinder Butcher MD [Physician] - Forms: ED Department Discharge Additional Instructions: You were seen in the emergency room for 3 weeks of right great toe joint, and left ankle pain and swelling. Based on your history and physical examination, your pain and swelling may be due to gout, however, there are other conditions that could cause your symptoms. The best way to find out what the cause of your symptoms is is to have a needle inserted into the joint while it is inflamed, and have fluid withdrawn and analyzed. This is best done by an Orthopedic Surgeon. You have been started on the opioid pain reliever Providence. A prescription for Providence has been provided to you. Take 1-2 tablets of Providence up to every 6 hours, as needed for pain. If you take Providence, do not drive or operate heavy machinery for 10 hours after taking. Providence may cause constipation, so consider taking a stool softener. Since there is Tylenol in Providence, do not also take [id number] Tylenol ( acetaminophen) if you are taking Providence. Follow-up with the Orthopedic Surgeon Dr. Bhupinder Butcher at the next available appointment. If any other problems, please do not hesitate to return to the ER.
== END 2018-08-01 21:10 | disposition home or self-care (01) ==
LOC: JD.ED 19:55
DX: M13.0 Polyarthritis, unspecified (principal); I10 Essential (primary) hypertension; F32.9 Major depressive disorder, single episode, unspecified; K21.9 Gastro-esophageal reflux disease without esophagitis; M10.9 Gout, unspecified; Z86.73 Personal history of transient ischemic attack (TIA), and cerebral infarction without residual deficits; Z79.01 Long term (current) use of anticoagulants; Z98.890 Other specified postprocedural states; Z79.899 Other long term (current) drug therapy; Z95.1 Presence of aortocoronary bypass graft; Z90.49 Acquired absence of other specified parts of digestive tract; Z88.1 Allergy status to other antibiotic agents; Z87.891 Personal history of nicotine dependence
CPT/HCPCS: 99284; A9270; 99283

== ENCOUNTER 2018-12-03 17:09 | Emergency (ER) | payer SELFPAY ==
[2018-12-03 17:31] VITALS: BP 105/77; PULSE 99
[2018-12-03] MEDS ORDERED: Ketorolac 60 MG/2 ML SDV IM ONE (17:41)
[2018-12-03] MEDS ORDERED: HYDROmorphone 1 MG/ML Syringe IM ONE (17:41)
--- NOTE | 2018-12-03 19:20 | EDM.PDOC ---
ED HPI GENERAL MEDICAL PROBLEM - General Chief Complaint: Lower Extremity Injury/Pain Stated Complaint: LEFT KNEE PAIN Time Seen by Provider: 12/03/18 17:32 Source of Information: Reports: Patient History Limitations: Reports: No Limitations - History of Present Illness INITIAL COMMENTS - FREE TEXT/NARRATIVE: The patient presents with left knee pain. This has been going on for couple days. He has a history of gout and sometimes it will flair up in the left knee. It started in the left foot a few days ago. He has no fever or chills. He has no history of injury to that knee. He is walking with a walker. He has a history of bactermia. He was on vancomycin for months. He just finished a few weeks ago. He has no chest pain or shortness of breath. He has no abdominal pain, nausea or vomiting. Onset: Gradual Duration: Day(s): Location: Reports: Lower Extremity, Left (knee) Quality: Reports: Sharp Severity: Severe Improves with: Reports: Immobilization Worsens with: Reports: Movement Context: Denies: Trauma Associated Symptoms: Reports: No Other Symptoms Left Knee Pain Score (Numeric/FACES): 10 - Related Data Allergies Allergy/AdvReac Type Severity Reaction Status Date / Time cephalexin Allergy Hives Verified 10/02/18 10:08 levofloxacin Allergy Hives Verified 08/31/18 10:56 Home Meds: Home Meds Metoprolol Succinate 50 mg PO DAILY 11/22/14 [History] Tacrolimus [Prograf] 1 mg PO DAILY 11/22/14 [History] Warfarin Sodium [Coumadin] 7.5 mg PO SUTUWETHSA 11/22/14 [History] Warfarin [Coumadin] 5 mg PO MOFR 11/22/14 [History] Multivitamin [Multi-Vitamin Daily] 1 tab PO DAILY 01/06/17 [History] Escitalopram [Lexapro] 10 mg PO DAILY 04/22/17 [History] Ferrous Sulfate 325 mg PO Q48H 04/22/17 [History] Lisinopril 5 mg PO DAILY 04/22/17 [History] Allopurinol [Zyloprim] 300 mg PO DAILY 08/31/18 [History] Simvastatin [Zocor] 40 mg PO DAILY 08/31/18 [History] Tacrolimus [Prograf] 0.5 mg PO BEDTIME 08/31/18 [History] predniSONE 5 mg PO DAILY 08/31/18 [History] oxyCODONE HCl/Acetaminophen [Percocet 5-325 mg Tablet] 1 - 2 each PO Q6HR PRN # 20 tablet 12/03/18 [Rx] predniSONE [Prednisone] 20 mg PO DAILY #5 tablet 12/03/18 [Rx] Past Medical History HEENT History: Reports: Impaired Vision Cardiovascular History: Reports: CAD, High Cholesterol, Hypertension Other Cardiovascular History: AVR, CABG x 1 2011 Gastrointestinal History: Reports: GERD Genitourinary History: Reports: Renal Disease Other Genitourinary History: right kidney transplant 2005. He was AV shunt left biceps area is no longer functioning. Musculoskeletal History: Reports: Gout Other Musculoskeletal History: uppar arm pain Neurological History: Reports: CVA Psychiatric History: Reports: Depression Hematologic History: Reports: Anticoagulation Therapy Dermatologic History: Reports: Other (See Below) Other Dermatologic History: rashes - Past Surgical History HEENT Surgical History: Reports: Oral Surgery Cardiovascular Surgical History: Reports: Coronary Artery Bypass, Valve Replacement, Vascular Surgery GI Surgical History: Reports: Appendectomy Musculoskeletal Surgical History: Reports: Shoulder Surgery Social & Family History - Family History Family Medical History: Noncontributory - Tobacco Use Smoking Status *Q: Never Smoker - Caffeine Use Caffeine Use: Reports: Coffee, Soda, Tea - Recreational Drug Use Recreational Drug Use: No - Living Situation & Occupation Living situation: Reports: , with Significant Other (Girlfriend) 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) Review of Systems - Review of Systems Review Of Systems: See Below Constitutional: Reports: No Symptoms Eyes: Reports: No Symptoms Ears: Reports: No Symptoms Nose: Reports: No Symptoms Mouth/Throat: Reports: No Symptoms Respiratory: Reports: No Symptoms Cardiovascular: Reports: No Symptoms GI/Abdominal: Reports: No Symptoms Genitourinary: Reports: No Symptoms Musculoskeletal: Reports: Other (Left knee pain and swelling) ED EXAM, GENERAL - Physical Exam Exam: See Below Exam Limited By: No Limitations General Appearance: Alert, No Apparent Distress Ears: Normal External Exam Nose: Normal Inspection Head: Atraumatic, Normocephalic Neck: Normal Inspection Respiratory/Chest: No Respiratory Distress, Lungs Clear, Normal Breath Sounds Cardiovascular: Regular Rate, Rhythm, No Edema, No Murmur GI/Abdominal: Soft, Non-Tender, No Organomegaly, No Mass Back Exam: Normal Inspection Extremities: Other (Edema, warmth and pain upon palpation to the left knee. Good sensation and pulses distally.) Course - Vital Signs Last Recorded V/S: Last Vital Signs Temp 98.2 F 12/03/18 17:28 Pulse 99 12/03/18 17:28 Resp 20 12/03/18 17:28 BP 105/77 12/03/18 17:28 Pulse Ox 96 12/03/18 17:28 - Orders/Labs/Meds Orders: Active Orders 24 hr Category Date Time Status Cardiac Monitoring [RC] . DIRECTED Care 12/03/18 17:40 Active CULTURE BLOOD [BC] Stat Lab 12/03/18 18:06 Received CULTURE BLOOD [BC] Stat Lab 12/03/18 18:50 Received SEDIMENTATION RATE AUTO [HEME] Stat Lab 12/03/18 18:06 Received Blood Culture x2 Reflex Set [OM.PC] Stat Oth 12/03/18 17:41 Ordered Labs: Laboratory Tests 12/03/18 12/03/18 12/03/18 Range/Units 18:06 18:06 18:50 WBC 13.88 H (4.23-9.07) K/mm3 RBC 4.24 L (4.63-6.08) M/mm3 Hgb 11.6 L (13.7-17.5) gm/dl Hct 36.7 L (40.1-51.0) % MCV 86.6 D (79.0-92.2) fl MCH 27.4 (25.7-32.2) pg MCHC 31.6 L (32.2-35.5) g/dl RDW Std Deviation 46.6 H (35.1-43.9) fL Plt Count 353 H D (163-337) K/mm3 MPV 10.7 (9.4-12.3) fl Neut % (Auto) 69.0 H (34.0-67.9) % Lymph % (Auto) 14.6 L (21.8-53.1) % [place] % (Auto) 12.8 H (5.3-12.2) % Eos % (Auto) 2.7 (0.8-7.0) Baso % (Auto) 0.3 (0.1-1.2) % Neut # (Auto) 9.57 H (1.78-5.38) K/mm3 Lymph # (Auto) 2.03 (1.32-3.57) K/mm3 [place] # (Auto) 1.78 H (0.30-0.82) K/mm3 Eos # (Auto) 0.37 (0.04-0.54) K/mm3 Baso # (Auto) 0.04 (0.01-0.08) K/mm3 Manual Slide Review Abnormal smear PT 49.3 H D (9.7-12.0) SECONDS INR 4.95 Sodium 134 L (136-145) mEq/L Potassium 4.2 (3.5-5.1) mEq/L Chloride 101 (98-107) mEq/L Carbon Dioxide 24 (21-32) mEq/L Anion Gap 13.2 (5-15) BUN 25 H (7-18) mg/dL Creatinine 1.4 H (0.7-1.3) mg/dL Est Cr Clr Drug Dosing 61.59 mL/min Estimated GFR (MDRD) 52 (>60) mL/min BUN/Creatinine Ratio 17.9 (14-18) Glucose 103 (74-106) mg/dL Calcium 9.7 (8.5-10.1) mg/dL Total Bilirubin 0.4 (0.2-1.0) mg/dL AST 15 (15-37) U/L ALT 21 (16-63) U/L Alkaline Phosphatase 71 (46-116) U/L C-Reactive Protein 11.4 H* (<1.0) mg/dL Total Protein 7.4 (6.4-8.2) g/dl Albumin 3.0 L (3.4-5.0) g/dl Globulin 4.4 gm/dL Albumin/Globulin Ratio 0.7 L (1-2) Meds: Medications Discontinued Medications Generic Name Dose Route Start Last Admin Trade Name Freq PRN Reason Stop Dose Admin Hydromorphone HCl 1 mg 12/03/18 17:41 12/03/18 18:01 Dilaudid IM 12/03/18 17:42 1 mg ONETIME ONE Administration Ketorolac Tromethamine 60 mg 12/03/18 17:41 12/03/18 18:01 Toradol IM 12/03/18 17:42 60 mg ONETIME ONE Administration - Re-Assessments/Exams Free Text/Narrative Re-Assessment/Exam: 12/03/18 19:28 I ordered labs and blood cultures. His WBC is elevated at 13.88. His is steroids. His Hgb was low at 11.6. His Na is low at 134. His creatinine was elevated at 1.4. His CRP is elevated at 11.4. His INR is elevated at 4.95. 12/03/18 19:33 I will have him call his coumadin clinic tomorrow. 12/03/18 19:34 I will give him a dose of percocet here and a prescription for more. Departure - Departure Time of Disposition: 19:35 Disposition: Home, Self-Care 01 Condition: Good Clinical Impression: Gout flare Qualifiers: Gout site: hand Gout etiology: other secondary cause Laterality: right Qualified Code(s): M10.441 - Other secondary gout, right hand - Discharge Information *PRESCRIPTION DRUG MONITORING PROGRAM REVIEWED*: No *COPY OF PRESCRIPTION DRUG MONITORING REPORT IN PATIENT HILARIA: No Prescriptions: oxyCODONE HCl/Acetaminophen [Percocet 5-325 mg Tablet] 1 - 2 each PO Q6HR PRN # 20 tablet PRN Reason: Pain predniSONE [Prednisone] 20 mg PO DAILY #5 tablet Referrals: Perfecto Andrade Jr, MD [Primary Care Provider] - 1 Week Forms: ED Department Discharge Additional Instructions: Take the prednisone 20mg daily in addition to the 5 you are taking. Take the percocet every 6 hours as needed for pain. I will call you with the blood culture results in a couple days. Please return if you are worse. - My Orders Last 24 Hours: My Active Orders 12/03/18 17:40 Cardiac Monitoring [RC] . DIRECTED 12/03/18 17:41 Blood Culture x2 Reflex Set [OM.PC] Stat 12/03/18 18:06 CULTURE BLOOD [BC] Stat SEDIMENTATION RATE AUTO [HEME] Stat 12/03/18 18:50 CULTURE BLOOD [BC] Stat - Assessment/Plan Last 24 Hours: My Active Orders 12/03/18 17:40 Cardiac Monitoring [RC] . DIRECTED 12/03/18 17:41 Blood Culture x2 Reflex Set [OM.PC] Stat 12/03/18 18:06 CULTURE BLOOD [BC] Stat SEDIMENTATION RATE AUTO [HEME] Stat 12/03/18 18:50 CULTURE BLOOD [BC] Stat
[2018-12-03] MEDS ORDERED: Acetaminophen/oxyCODONE 325-5 MG Tab PO ONE (19:33)
== END 2018-12-03 20:00 | disposition home or self-care (01) ==
LOC: JD.ED 17:09
DX: M10.441 Other secondary gout, right hand (principal); M25.562 Pain in left knee; I10 Essential (primary) hypertension; I25.10 Atherosclerotic heart disease of native coronary artery without angina pectoris; E78.00 Pure hypercholesterolemia, unspecified; F32.9 Major depressive disorder, single episode, unspecified; Z79.01 Long term (current) use of anticoagulants; Z88.1 Allergy status to other antibiotic agents; Z79.899 Other long term (current) drug therapy
CPT/HCPCS: 36415; 80053; 85025; 85610; 85652; 86140; 87040; 96372; 99283; A9270; J1170; J1885

== ENCOUNTER 2019-02-16 13:03 | Emergency (ER) | payer MEDICAID ==
--- NOTE | 2019-02-16 16:24 | EDM.PDOC ---
ED HPI GENERAL MEDICAL PROBLEM - General Chief Complaint: Abdominal Pain Stated Complaint: RECTAL BLEEDING Time Seen by Provider: 02/16/19 14:24 Source of Information: Reports: Patient, RN Notes Reviewed - History of Present Illness INITIAL COMMENTS - FREE TEXT/NARRATIVE: 58-year-old male comes in after 2 episodes of rectal bleeding earlier today. He was not sure if this was coming from a hemorrhoid or skin tag or internally. Blight red blood twice in the toilet this morning with no further episodes in the last few hours. Abdominal pain nausea or vomiting. No laboratory stools. he is on Coumadin and has not had his pro time INR checked recently. Rectal Pain Score (Numeric/FACES): 2 - Related Data Allergies Allergy/AdvReac Type Severity Reaction Status Date / Time cephalexin Allergy Hives Verified 10/02/18 10:08 levofloxacin Allergy Hives Verified 08/31/18 10:56 Home Meds: Home Meds Metoprolol Succinate 50 mg PO DAILY 11/22/14 [History] Tacrolimus [Prograf] 1 mg PO DAILY 11/22/14 [History] Warfarin Sodium [Coumadin] 7.5 mg PO SUTUWETHSA 11/22/14 [History] Warfarin [Coumadin] 5 mg PO MOFR 11/22/14 [History] Multivitamin [Multi-Vitamin Daily] 1 tab PO DAILY 01/06/17 [History] Escitalopram [Lexapro] 10 mg PO DAILY 04/22/17 [History] Ferrous Sulfate 325 mg PO Q48H 04/22/17 [History] Lisinopril 5 mg PO DAILY 04/22/17 [History] Simvastatin [Zocor] 40 mg PO DAILY 08/31/18 [History] Tacrolimus [Prograf] 0.5 mg PO BEDTIME 08/31/18 [History] allopurinoL [Zyloprim] 300 mg PO DAILY 08/31/18 [History] predniSONE 5 mg PO DAILY 08/31/18 [History] predniSONE [Prednisone] 20 mg PO DAILY #5 tablet 12/03/18 [Rx] Past Medical History HEENT History: Reports: Impaired Vision Cardiovascular History: Reports: CAD, Heart Valve Replacement, High Cholesterol , Hypertension Other Cardiovascular History: AVR, CABG x 1 2011 Gastrointestinal History: Reports: GERD Genitourinary History: Reports: Renal Disease Other Genitourinary History: right kidney transplant 2005. He was AV shunt left biceps area is no longer functioning. Musculoskeletal History: Reports: Gout Other Musculoskeletal History: uppar arm pain Neurological History: Reports: CVA Psychiatric History: Reports: Depression Hematologic History: Reports: Anticoagulation Therapy Dermatologic History: Reports: Other (See Below) Other Dermatologic History: rashes - Past Surgical History HEENT Surgical History: Reports: Oral Surgery Cardiovascular Surgical History: Reports: Coronary Artery Bypass, Valve Replacement, Vascular Surgery GI Surgical History: Reports: Appendectomy Musculoskeletal Surgical History: Reports: Shoulder Surgery Social & Family History - Family History Family Medical History: Noncontributory - Tobacco Use Smoking Status *Q: Never Smoker - Caffeine Use Caffeine Use: Reports: Coffee, Soda, Tea - Recreational Drug Use Recreational Drug Use: No - Living Situation & Occupation Living situation: Reports: , with Significant Other (Girlfriend) 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 Denies: Abdominal Pain, Melena, Nausea, Vomiting Musculoskeletal: Reports: No Symptoms Skin: Reports: No Symptoms Neurological: Reports: No Symptoms ED EXAM, GI/ABD - Physical Exam Exam: See Below General Appearance: Alert Throat/Mouth: Normal Inspection Head: Atraumatic Neck: Supple Respiratory/Chest: No Respiratory Distress, Lungs Clear, Normal Breath Sounds Cardiovascular: Regular Rate, Rhythm GI/Abdominal Exam: Soft, Non-Tender. No: Guarding Rectal (Males) Exam: Normal Exam, Other (No blood in the rectum, no active bleeding at this time, no visible hemorrhoids, he does have a couple of skin tags around the rectal area but no inflamed hemorrhoids visible. Hemoccult of mucus, trace heme positive.) Course - Vital Signs Last Recorded V/S: Last Vital Signs Temp 98.0 F 02/16/19 16:45 Pulse 82 02/16/19 16:45 Resp 16 02/16/19 16:45 BP 111/82 02/16/19 16:45 Pulse Ox 96 02/16/19 16:45 - Orders/Labs/Meds Labs: Laboratory Tests 02/16/19 02/16/19 02/16/19 Range/Units 13:44 14:40 14:40 WBC 14.10 H (4.23-9.07) K/mm3 RBC 4.27 L (4.63-6.08) M/mm3 Hgb 11.5 L (13.7-17.5) gm/dl Hct 36.6 L (40.1-51.0) % MCV 85.7 (79.0-92.2) fl MCH 26.9 (25.7-32.2) pg MCHC 31.4 L (32.2-35.5) g/dl RDW Std Deviation 54.9 H (35.1-43.9) fL Plt Count 303 (163-337) K/mm3 MPV 10.9 (9.4-12.3) fl Neut % (Auto) 80.2 H (34.0-67.9) % Lymph % (Auto) 11.7 L (21.8-53.1) % [place] % (Auto) 5.4 (5.3-12.2) % Eos % (Auto) 0.3 L (0.8-7.0) Baso % (Auto) 0.2 (0.1-1.2) % Neut # (Auto) 11.31 H (1.78-5.38) K/mm3 Lymph # (Auto) 1.65 (1.32-3.57) K/mm3 [place] # (Auto) 0.76 (0.30-0.82) K/mm3 Eos # (Auto) 0.04 (0.04-0.54) K/mm3 Baso # (Auto) 0.03 (0.01-0.08) K/mm3 Manual Slide Review Abnormal smear PT > 90.0 H* D (9.7-12.0) SECONDS INR TNP Sodium 143 (136-145) mEq/L Potassium 4.5 (3.5-5.1) mEq/L Chloride 111 H (98-107) mEq/L Carbon Dioxide 23 (21-32) mEq/L Anion Gap 13.5 (5-15) BUN 26 H (7-18) mg/dL Creatinine 1.2 (0.7-1.3) mg/dL Est Cr Clr Drug Dosing 71.85 mL/min Estimated GFR (MDRD) > 60 (>60) mL/min BUN/Creatinine Ratio 21.7 H (14-18) Glucose 143 H (74-106) mg/dL Calcium 9.1 (8.5-10.1) mg/dL Total Bilirubin 0.2 (0.2-1.0) mg/dL AST 16 (15-37) U/L ALT 22 (16-63) U/L Alkaline Phosphatase 57 (46-116) U/L Total Protein 6.4 (6.4-8.2) g/dl Albumin 3.1 L (3.4-5.0) g/dl Globulin 3.3 gm/dL Albumin/Globulin Ratio 0.9 L (1-2) Meds: Medications Discontinued Medications Generic Name Dose Route Start Last Admin Trade Name Freq PRN Reason Stop Dose Admin Phytonadione 2.5 mg 02/16/19 16:23 02/16/19 16:41 Aquamephyton PO 02/16/19 16:24 2.5 mg ONETIME ONE Administration - Re-Assessments/Exams Free Text/Narrative Re-Assessment/Exam: 02/16/19 17:01 Pro time came back greater than 90, INR lab was not able to measure, no active bleeding while here in the ED, vitals stable hemoglobin 11.5. Have given vitamin K2.5 milligrams oral. Have him hold his Coumadin for now and have pro time INR rechecked 2 days from now. Discharge instructions as documented. Departure - Departure Time of Disposition: 16:30 Disposition: Home, Self-Care 01 Condition: Fair Clinical Impression: Rectal hemorrhage, Elevated INR - Discharge Information Instructions: Rectal Bleeding, [id number] Referrals: Perfecto Andrade Jr, MD [Primary Care Provider] - Forms: ED Department Discharge Additional Instructions: Given given vitamin K 2.5 mg orally while here in the ED to help thicken your blood a bit. Your pro time INR was way too high when checked here in the ED at this time. Not take her Coumadin tonight or for the next few days until further directed to resume. Have your pro time INR checked at the clinic if possible and then let that reading guide when to resume and at what dosage. Drink plenty of water to maintain hydration. Return to ED as needed if symptoms worsening in any way, especially if having even larger amounts of repetitive rectal bleeding or if feeling weak lightheaded or dizzy when standing. Sepsis Event Note - Evaluation Sepsis Screening Result: No Definite Risk - Focused Exam Vital Signs: Vital Signs Temp Pulse Resp BP Pulse Ox 02/16/19 16:45 98.0 F 82 16 111/82 96 02/16/19 13:46 98.0 F 78 20 108/80 97 Date Exam was Performed: 02/16/19 Time Exam was Performed: 16:58
[2019-02-16 16:51] VITALS: BP 111/82; PULSE 82
== END 2019-02-16 16:45 | disposition home or self-care (01) ==
LOC: JD.ED 13:03
DX: K62.5 Hemorrhage of anus and rectum (principal); R79.1 Abnormal coagulation profile; F32.9 Major depressive disorder, single episode, unspecified; E78.00 Pure hypercholesterolemia, unspecified; I10 Essential (primary) hypertension; I25.10 Atherosclerotic heart disease of native coronary artery without angina pectoris; Z88.1 Allergy status to other antibiotic agents; Z79.899 Other long term (current) drug therapy; Z95.1 Presence of aortocoronary bypass graft; Z86.73 Personal history of transient ischemic attack (TIA), and cerebral infarction without residual deficits; Z79.01 Long term (current) use of anticoagulants
CPT/HCPCS: 36415; 80053; 85025; 85610; 99283; J3430; 99282

== ENCOUNTER 2020-01-23 20:32 | Emergency (ER) | payer MEDICAID ==
[2020-01-23 20:41] VITALS: BP 156/104; PULSE 102
[2020-01-23] MEDS ORDERED: HYDROmorphone 0.5 MG/0.5 ML Syringe IM ONE (21:01)
[2020-01-23] MEDS ORDERED: Dexamethasone 10 MG/ML SDV IM ONE (21:02)
[2020-01-23] MEDS ORDERED: Acetaminophen/oxyCODONE 325-5 MG Tab PO ONE (21:02)
--- NOTE | 2020-01-23 21:20 | EDM.PDOC ---
ED HPI GENERAL MEDICAL PROBLEM - General Chief Complaint: Upper Extremity Injury/Pain Stated Complaint: wrist INJURY Time Seen by Provider: 01/23/20 20:39 Source of Information: Reports: Patient, RN Notes Reviewed History Limitations: Reports: No Limitations - History of Present Illness INITIAL COMMENTS - FREE TEXT/NARRATIVE: Patient is a 59-year-old male who presents to the ED for his left wrist pain. The patient notes that he has been having left wrist pain since Friday. He has a history of gout, and he states he had 2 glasses of red wine on , and had the resultant left wrist pain on Friday. He denies any trauma or injury to the area. The joint itself is red, swollen and very painful. He has been using Tylenol at home with no pain relief. Patient denies any other sick-like symptoms, fever/chills, cough/shortness of breath, nausea/vomiting/diarrhea. Left Wrist Pain Score (Numeric/FACES): 10 - Related Data Allergies Allergy/AdvReac Type Severity Reaction Status Date / Time cephalexin Allergy Hives Verified 01/23/20 20:41 levofloxacin Allergy Hives Verified 01/23/20 20:41 Home Meds: Home Meds Metoprolol Succinate 50 mg PO DAILY 11/22/14 [History] Tacrolimus [Prograf] 1 mg PO DAILY 11/22/14 [History] Warfarin Sodium [Coumadin] 7.5 mg PO SUTUWETHSA 11/22/14 [History] Warfarin [Coumadin] 5 mg PO MOFR 11/22/14 [History] Multivitamin [Multi-Vitamin Daily] 1 tab PO DAILY 01/06/17 [History] Escitalopram [Lexapro] 10 mg PO DAILY 04/22/17 [History] Ferrous Sulfate 325 mg PO Q48H 04/22/17 [History] Lisinopril 5 mg PO DAILY 04/22/17 [History] Simvastatin [Zocor] 40 mg PO DAILY 08/31/18 [History] Tacrolimus [Prograf] 0.5 mg PO BEDTIME 08/31/18 [History] allopurinoL [Zyloprim] 300 mg PO DAILY 08/31/18 [History] predniSONE 5 mg PO DAILY 08/31/18 [History] Acetaminophen/oxyCODONE [Percocet 325-5 MG] 1 each PO Q6H PRN #12 tab 01/23/20 [ Rx] methylPREDNISolone [Medrol Dose Pack] 4 mg PO ASDIRECTED #1 dospk 01/23/20 [Rx] Past Medical History HEENT History: Reports: Impaired Vision Cardiovascular History: Reports: CAD, Heart Valve Replacement, High Cholesterol, Hypertension Other Cardiovascular History: AVR, CABG x 1 2011 Gastrointestinal History: Reports: GERD Genitourinary History: Reports: Renal Disease Other Genitourinary History: right kidney transplant 2005. He was AV shunt left biceps area is no longer functioning. Musculoskeletal History: Reports: Gout Neurological History: Reports: CVA Psychiatric History: Reports: Depression Hematologic History: Reports: Anticoagulation Therapy Dermatologic History: Reports: Other (See Below) Other Dermatologic History: rashes - Infectious Disease History Infectious Disease History: Reports: Chicken Pox - Past Surgical History Cardiovascular Surgical History: Reports: Coronary Artery Bypass, Valve Replacement, Vascular Surgery Other Cardiovascular Surgeries/Procedures: Valve replaced in 2011 GI Surgical History: Reports: Appendectomy Male Surgical History: Reports: Other (See Below) Musculoskeletal Surgical History: Reports: Shoulder Surgery Social & Family History - Family History Family Medical History: No Pertinent Family History - Tobacco Use Tobacco Use Status *Q: Former Tobacco User Used Tobacco, but Quit: Yes Month/Year Tobacco Last Used: 1999 - Caffeine Use Caffeine Use: Reports: None - Recreational Drug Use Recreational Drug Use: No - Living Situation & Occupation Living situation: Reports: , with Significant Other (Girlfriend) 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 ED EXAM, GENERAL - Physical Exam Exam: See Below Exam Limited By: No Limitations General Appearance: Alert, WD/WN, No Apparent Distress Respiratory/Chest: No Respiratory Distress, Lungs Clear, Normal Breath Sounds, No Accessory Muscle Use, Chest Non-Tender Cardiovascular: Normal Peripheral Pulses, Regular Rate, Rhythm, No Murmur Extremities: Normal Capillary Refill, Limited Range of Motion (or left wrist d/t pain), Increased Warmth (Left wrist), Redness (Left wrist) Neurological: Alert, Oriented, Normal Cognition, No Motor/Sensory Deficits Psychiatric: Normal Affect, Normal Mood Skin Exam: Warm, Dry, Intact, No Rash, Erythema (Left wrist), Increased Warmth (Left wrist) Course - Vital Signs Last Recorded V/S: Last Vital Signs Temp 97.8 F 01/23/20 20:39 Pulse 102 H 01/23/20 20:39 Resp 18 01/23/20 20:39 BP 156/104 H 01/23/20 20:39 Pulse Ox 95 01/23/20 20:39 - Orders/Labs/Meds Meds: Medications Discontinued Medications Generic Name Dose Route Start Last Admin Trade Name Cristinoq PRN Reason Stop Dose Admin Dexamethasone 10 mg 01/23/20 21:02 01/23/20 21:09 Decadron IM 01/23/20 21:03 10 mg ONETIME ONE Administration Hydromorphone HCl 0.5 mg 01/23/20 21:01 01/23/20 21:09 Dilaudid IM 01/23/20 21:02 0.5 mg ONETIME ONE Administration Oxycodone/Acetaminophen 2 tab 01/23/20 21:02 01/23/20 21:09 Percocet 325-5 Mg PO 01/23/20 21:03 2 tab ONETIME ONE Administration - Re-Assessments/Exams Free Text/Narrative Re-Assessment/Exam: 01/23/20 21:19 Patient presents to the ED for his left wrist pain. Does appear to be an acute gout flare. He will be treated as such. 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 Departure - Departure Time of Disposition: 21:19 Disposition: Home, Self-Care 01 Condition: Good Clinical Impression: Gout attack Qualifiers: Gout site: wrist Gout etiology: other secondary cause Laterality: left Qualified Code(s): M10.432 - Other secondary gout, left wrist - Discharge Information *PRESCRIPTION DRUG MONITORING PROGRAM REVIEWED*: Yes *COPY OF PRESCRIPTION DRUG MONITORING REPORT IN PATIENT HILARIA: No Prescriptions: methylPREDNISolone [Medrol Dose Pack] 4 mg PO ASDIRECTED #1 dospk Acetaminophen/oxyCODONE [Percocet 325-5 MG] 1 each PO Q6H PRN #12 tab PRN Reason: Pain Instructions: Low-Purine Eating Plan Referrals: Perfecto Andrade Jr, MD [Primary Care Provider] - Additional Instructions: You were seen in the ER today for your left wrist pain. This is most likely due to gout in nature. You have been given a prescription for steroids and a pain medication, please take as directed for relief of your symptoms. Medications were started in the ER tonight. You will need to go to the [place] [facility] tomorrow to continue medications as prescribed. You may use ice/heat to the area, if this helps relieve some of the pain and swelling. Please return to the ER at any time if symptoms change or worsen. Sepsis Event Note (ED) - Evaluation Sepsis Screening Result: No Definite Risk - Focused Exam Vital Signs: Vital Signs Temp Pulse Resp BP Pulse Ox 01/23/20 20:39 97.8 F 102 H 18 156/104 H 95
== END 2020-01-23 21:26 | disposition home or self-care (01) ==
LOC: JD.ED 20:32
DX: M10.432 Other secondary gout, left wrist (principal); I25.10 Atherosclerotic heart disease of native coronary artery without angina pectoris; E78.00 Pure hypercholesterolemia, unspecified; I10 Essential (primary) hypertension; F32.9 Major depressive disorder, single episode, unspecified; Z88.1 Allergy status to other antibiotic agents; Z79.01 Long term (current) use of anticoagulants; Z79.899 Other long term (current) drug therapy; Z95.1 Presence of aortocoronary bypass graft; Z86.73 Personal history of transient ischemic attack (TIA), and cerebral infarction without residual deficits; Z87.891 Personal history of nicotine dependence
CPT/HCPCS: 96372; 99283; A9270; J1100; J1170

== ENCOUNTER 2020-09-21 03:36 | Emergency (ER) | payer MEDICAID ==
[2020-09-21 03:48] VITALS: PULSE 66
[2020-09-21 03:55] VITALS: BP 156/97
--- NOTE | 2020-09-21 03:57 | EDM.PDOC ---
ED HPI GENERAL MEDICAL PROBLEM - General Chief Complaint: Lower Extremity Injury/Pain Stated Complaint: SWOLLEN RT KNEE Time Seen by Provider: 09/21/20 03:53 - History of Present Illness INITIAL COMMENTS - FREE TEXT/NARRATIVE: 60-year-old male returns the emergency room with an acute gouty attack of his right knee. Patient has lots of problems with gout he is taking allopurinol. Patient is also on Coumadin he has his INR checked every couple of weeks and dosage adjusted accordingly. He has a kidney transplant. Patient had his knee started to swell up the way he normally does with gouty attacks this evening. The pain is getting pretty significant. He denies any fevers or chills. Patient had his last gouty attack couple weeks ago he was treated with a single Medrol Dosepak. This occurred in his left great toe Right Knee Pain Score (Numeric/FACES): 10 - Related Data Allergies Allergy/AdvReac Type Severity Reaction Status Date / Time cephalexin Allergy Hives Verified 09/21/20 03:48 levofloxacin Allergy Hives Verified 09/21/20 03:48 Home Meds: Home Meds Metoprolol Succinate 50 mg PO DAILY 11/22/14 [History] Tacrolimus [Prograf] 1 mg PO DAILY 11/22/14 [History] Warfarin Sodium [Coumadin] 7.5 mg PO SUTUWETHSA 11/22/14 [History] Warfarin [Coumadin] 5 mg PO MOFR 11/22/14 [History] Escitalopram [Lexapro] 10 mg PO DAILY 04/22/17 [History] Ferrous Sulfate 325 mg PO Q48H 04/22/17 [History] Lisinopril 5 mg PO DAILY 04/22/17 [History] Simvastatin [Zocor] 40 mg PO DAILY 08/31/18 [History] Tacrolimus [Prograf] 0.5 mg PO BEDTIME 08/31/18 [History] allopurinoL [Zyloprim] 300 mg PO DAILY 08/31/18 [History] Past Medical History HEENT History: Reports: Impaired Vision Cardiovascular History: Reports: CAD, Heart Valve Replacement, High Cholesterol, Hypertension Other Cardiovascular History: AVR, CABG x 1 2011 Gastrointestinal History: Reports: GERD Genitourinary History: Reports: Renal Disease Other Genitourinary History: right kidney transplant 2005. He was AV shunt left biceps area is no longer functioning. Musculoskeletal History: Reports: Gout Neurological History: Reports: CVA Psychiatric History: Reports: Depression Hematologic History: Reports: Anticoagulation Therapy Dermatologic History: Reports: Other (See Below) Other Dermatologic History: rashes - Infectious Disease History Infectious Disease History: Reports: Chicken Pox - Past Surgical History Cardiovascular Surgical History: Reports: Coronary Artery Bypass, Valve Replacement, Vascular Surgery Other Cardiovascular Surgeries/Procedures: Valve replaced in 2011 GI Surgical History: Reports: Appendectomy Male Surgical History: Reports: Other (See Below) Musculoskeletal Surgical History: Reports: Shoulder Surgery Social & Family History - Family History Family Medical History: No Pertinent Family History - Tobacco Use Tobacco Use Status *Q: Never Tobacco User - Caffeine Use Caffeine Use: Reports: Coffee - Recreational Drug Use Recreational Drug Use: No - Living Situation & Occupation Living situation: Reports: , with Significant Other (Girlfriend) 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) Review of Systems - Review of Systems Review Of Systems: See Below Constitutional: Reports: No Symptoms Respiratory: Reports: No Symptoms Cardiovascular: Reports: No Symptoms GI/Abdominal: Reports: No Symptoms Musculoskeletal: Reports: Other (Knee pain see history of present illness) Neurological: Reports: No Symptoms ED EXAM, GENERAL - Physical Exam Exam: See Below Exam Limited By: No Limitations General Appearance: Alert, No Apparent Distress Head: Atraumatic, Normocephalic Neck: Normal Inspection, Supple, Non-Tender, Full Range of Motion Respiratory/Chest: No Respiratory Distress, Lungs Clear, Normal Breath Sounds Cardiovascular: Regular Rate, Rhythm, No Edema, No Murmur GI/Abdominal: Normal Bowel Sounds, Soft, Non-Tender, Other (Kidney graft site right lateral abdomen nontender with palpation) Back Exam: Normal Inspection. No: CVA Tenderness (L), CVA Tenderness (R) Extremities: Other (Examination of the right knee shows developing erythema and swelling lateral more than medial and more anterior.) Course - Vital Signs Last Recorded V/S: Last Vital Signs Temp 36.2 C 09/21/20 03:54 Pulse 66 09/21/20 03:54 Resp 16 09/21/20 03:54 BP 156/97 H 09/21/20 03:54 Pulse Ox 99 09/21/20 03:54 - Re-Assessments/Exams Free Text/Narrative Re-Assessment/Exam: 09/21/20 04:30 Discussed the benefits of checking labs with the patient and the patient declined this option. We will start him on prednisone will have to taper as he just finished a Medrol Dosepak about 1 week ago. Departure - Departure Time of Disposition: 04:31 Disposition: Home, Self-Care 01 Clinical Impression: Acute gout of right knee - Discharge Information Referrals: Ceci Grady MD [Primary Care Provider] - Forms: ED Department Discharge Additional Instructions: Return to the emergency room with any questions problems or worsening symptoms. Follow-up with Dr. Grady this next week. You have been started on prednisone this is much like the Medrol Dosepak he just took except you will take it for a longer period of time. Your get a p rescription for 30 tablets. Starting tomorrow the morning of the take 4 tablets every morning for 3 days then take 3 tablets every morning for 3 days then take 2 tablets every morning for 3 days then take 1 tablet every morning for 3 days and then stop. This is sent electronically to [facility] in [facility]. Sepsis Event Note (ED) - Evaluation Sepsis Screening Result: No Definite Risk - Focused Exam Vital Signs: Vital Signs Temp Pulse Resp BP Pulse Ox 09/21/20 03:54 36.2 C 66 16 156/97 H 99 09/21/20 03:44 36.2 C 66 16 99
[2020-09-21] MEDS ORDERED: HYDROmorphone 1 MG/ML Syringe IM ONE (04:19)
[2020-09-21] MEDS ORDERED: predniSONE 20 MG Tab PO ONE (04:20)
== END 2020-09-21 05:00 | disposition home or self-care (01) ==
LOC: JD.ED 03:36
DX: M10.9 Gout, unspecified (principal); I25.10 Atherosclerotic heart disease of native coronary artery without angina pectoris; E78.00 Pure hypercholesterolemia, unspecified; I10 Essential (primary) hypertension; Z79.01 Long term (current) use of anticoagulants; Z79.899 Other long term (current) drug therapy; Z88.1 Allergy status to other antibiotic agents
CPT/HCPCS: 96372; 99283; J1170; J7512

== ENCOUNTER 2021-07-17 17:30 | Emergency (ER) | payer MEDICAID ==
[2021-07-17 17:49] VITALS: BP 111/83; PULSE 126
[2021-07-17] MEDS ORDERED: Sodium Chloride 0.9% 10 ML Syringe FLUSH PRN (18:02)
[2021-07-17] MEDS ORDERED: Ondansetron 4 MG/2 ML SDV IVPUSH ONE (18:04)
[2021-07-17] MEDS ORDERED: HYDROmorphone 1 MG/ML Syringe IVPUSH ONE (18:04)
[2021-07-17] MEDS ORDERED: methylPREDNISolone Sodium Succinate 125 MG/2 ML SDV IVPUSH ONE (18:04)
[2021-07-17] MEDS ORDERED: Colchicine 0.6 MG Tab ONE (18:32)
[2021-07-17] MEDS ORDERED: Colchicine 0.6 MG Tab PO ONE (18:37)
[2021-07-18] MEDS ORDERED: Colchicine 0.6 MG Tab PO ONE (18:02)
== END 2021-07-17 19:36 | disposition home or self-care (01) ==
LOC: JD.ED 17:30
DX: M10.9 Gout, unspecified (principal); Z88.1 Allergy status to other antibiotic agents
CPT/HCPCS: 36415; 80053; 84550; 85007; 85027; 85610; 85652; 86140; 96374; 96375; 99283; A9270; J1170; J2405; J2930; J3490

== ENCOUNTER 2021-08-03 19:57 | Emergency (ER) | payer MEDICAID ==
[2021-08-03 20:14] VITALS: BP 157/113; PULSE 107
[2021-08-03] MEDS ORDERED: Morphine 4 MG/ML Syringe IVPUSH ONE (20:56)
[2021-08-03] MEDS ORDERED: Phytonadione ORAL 2.5mg/2.5ml Soln Simple Syrup U/D PO ONE (20:57)
== END 2021-08-03 22:45 | disposition home or self-care (01) ==
LOC: JD.ED 19:57
DX: S16.1XXA Strain of muscle, fascia and tendon at neck level, initial encounter (principal); R79.1 Abnormal coagulation profile; I25.10 Atherosclerotic heart disease of native coronary artery without angina pectoris; E78.00 Pure hypercholesterolemia, unspecified; E66.9 Obesity, unspecified; Z68.26 Body mass index [BMI] 26.0-26.9, adult; Z86.16 Personal history of COVID-19; Z86.73 Personal history of transient ischemic attack (TIA), and cerebral infarction without residual deficits; Z90.49 Acquired absence of other specified parts of digestive tract; Z79.899 Other long term (current) drug therapy; Z79.01 Long term (current) use of anticoagulants; Z88.1 Allergy status to other antibiotic agents; W01.10XA Fall on same level from slipping, tripping and stumbling with subsequent striking against unspecified object, initial encounter
CPT/HCPCS: 36415; 70450; 70486; 71045; 72125; 80053; 85025; 85610; 96374; 99284; A9270; J2270

== ENCOUNTER 2021-08-07 13:51 | Emergency (ER) | payer MEDICAID ==
[2021-08-07 14:05] VITALS: BP 139/92; PULSE 100
[2021-08-07] MEDS ORDERED: Acetaminophen/HYDROcodone 325-5 MG Tab PO ONE (14:30)
== END 2021-08-07 16:10 | disposition home or self-care (01) ==
LOC: JD.ED 13:51
DX: M54.2 Cervicalgia (principal); I25.10 Atherosclerotic heart disease of native coronary artery without angina pectoris; E78.00 Pure hypercholesterolemia, unspecified; I10 Essential (primary) hypertension; E66.9 Obesity, unspecified; Z68.30 Body mass index [BMI] 30.0-30.9, adult; Z86.73 Personal history of transient ischemic attack (TIA), and cerebral infarction without residual deficits; Z86.16 Personal history of COVID-19; Z90.49 Acquired absence of other specified parts of digestive tract; Z79.01 Long term (current) use of anticoagulants; Z88.1 Allergy status to other antibiotic agents; W01.10XA Fall on same level from slipping, tripping and stumbling with subsequent striking against unspecified object, initial encounter
CPT/HCPCS: 70450; 72125; 99283; A9270; 99284

== ENCOUNTER 2021-08-10 11:02 | Emergency (ER) | payer MEDICAID ==
[2021-08-10] MEDS ORDERED: Sodium Chloride 0.9% 10 ML Syringe FLUSH PRN (11:29)
[2021-08-10] MEDS ORDERED: Sodium Chloride 0.9% 1,000 ML IV SCH (11:30)
[2021-08-10] MEDS ORDERED: Doxycycline 100 MG Cap PO ONE (14:06)
[2021-08-10 16:05] VITALS: BP 141/104; PULSE 106
== END 2021-08-10 14:55 | disposition home or self-care (01) ==
LOC: JD.ED 11:02
DX: L03.113 Cellulitis of right upper limb (principal); E78.00 Pure hypercholesterolemia, unspecified; I10 Essential (primary) hypertension; K21.9 Gastro-esophageal reflux disease without esophagitis; E66.9 Obesity, unspecified; Z68.31 Body mass index [BMI] 31.0-31.9, adult; Z79.899 Other long term (current) drug therapy; Z88.8 Allergy status to other drugs, medicaments and biological substances
CPT/HCPCS: 36415; 70450; 73564; 80053; 83735; 84484; 84550; 85025; 85610; 86140; 93005; 96360; 99285; A9270; J3490; J7030

== ENCOUNTER 2021-08-12 22:54 | Inpatient (IN) | payer MEDICAID ==
[2021-08-12] MEDS ORDERED: Sodium Chloride 0.9% 1,000 ML IV SCH (23:30)
[2021-08-13] MEDS: Lactated Ringers 1,000 ML IV SCH ×2 (05:00→15:18)
[2021-08-13] MEDS: Sodium Polystyrene Sulfonate 15 GM/60 ML Susp 60 ML Bot PO SCH ×2 (09:42→15:19)
[2021-08-13] MEDS ORDERED: Lidocaine 2% 11 ML Jelly Filled Syringe MUCMEM ONE (11:30)
[2021-08-13] MEDS: predniSONE 5 MG Tab PO SCH (15:12)
[2021-08-13] MEDS ORDERED: LORazepam 2 MG/ML SDV IVPUSH ONE (16:35)
[2021-08-13] MEDS: Metoprolol Succinate 50 MG Tab.ER PO SCH (16:38)
[2021-08-13] MEDS ORDERED: Warfarin 7.5 MG Tab PO SCH (19:00)
[2021-08-13] MEDS: LORazepam 2 MG/ML SDV IVPUSH PRN ×3 (19:39→23:36)
[2021-08-13] MEDS: Mycophenolate Mofetil 250 MG Cap PO SCH (21:21)
[2021-08-14] MEDS: LORazepam 2 MG/ML SDV IVPUSH PRN ×3 (01:30→06:16)
[2021-08-14] MEDS: Lactated Ringers 1,000 ML IV SCH ×3 (02:52→18:37)
[2021-08-14] MEDS: Cefepime 2 GM in Sodium Chloride 0.9% 100 ML IV SCH ×2 (08:28→22:13)
[2021-08-14] MEDS ORDERED: cefTRIAXone 2 GM in Sodium Chloride 0.9% 100 ML IV SCH (09:00)
[2021-08-14] MEDS ORDERED: Metoprolol Succinate 50 MG Tab.ER PO SCH (09:00)
[2021-08-14] MEDS ORDERED: Cefepime 1 GM in Sodium Chloride 0.9% 50 ML IV SCH (09:00)
[2021-08-14] MEDS ORDERED: Vancomycin 1.75 GM in Sodium Chloride 0.9% 500 ML IV ONE (09:00)
[2021-08-14] MEDS: predniSONE 5 MG Tab PO SCH (10:56)
[2021-08-14] MEDS: Metoprolol Succinate 50 MG Tab.ER PO SCH ×2 (10:56→17:38)
[2021-08-14] MEDS: Mycophenolate Mofetil 250 MG Cap PO SCH ×3 (10:56→20:14)
[2021-08-14] MEDS: Citalopram 20 MG Tab PO SCH (10:56)
[2021-08-14] MEDS ORDERED: Acetaminophen Soln 650 MG/20.3 ML UD Cup PO PRN (15:50)
[2021-08-14] MEDS ORDERED: Lactated Ringers 500 ML IV ONE (16:00)
[2021-08-14] MEDS: Lidocaine 4% 1 each Patch TOP PRN (16:36)
[2021-08-14] MEDS ORDERED: Warfarin 5 MG Tab PO SCH (18:00)
[2021-08-14] MEDS ORDERED: Cefepime 2 GM Vial ONE (20:57)
[2021-08-14] MEDS ORDERED: Vancomycin 500 MG SDV ONE (21:39)
[2021-08-14] MEDS: Vancomycin 1 GM, Vancomycin 250 MG in Sodium Chloride 0.9% 250 ML IV SCH (22:14)
[2021-08-14] MEDS: Acetaminophen 325 MG Tab PO PRN (22:18)
[2021-08-15] MEDS: Lactated Ringers 1,000 ML IV SCH ×3 (03:53→23:33)
[2021-08-15] MEDS: Cefepime 2 GM in Sodium Chloride 0.9% 50 ML IV SCH ×3 (08:49→23:27)
[2021-08-15] MEDS: Vancomycin 1 GM, Vancomycin 250 MG in Sodium Chloride 0.9% 250 ML IV SCH ×2 (08:50→21:11)
[2021-08-15] MEDS: Metoprolol Succinate 50 MG Tab.ER PO SCH (10:11)
[2021-08-15] MEDS: predniSONE 5 MG Tab PO SCH (10:13)
[2021-08-15] MEDS: Citalopram 20 MG Tab PO SCH (10:13)
[2021-08-15] MEDS: Mycophenolate Mofetil 250 MG Cap PO SCH ×2 (10:16→21:11)
[2021-08-15] MEDS: Acetaminophen 325 MG Tab PO PRN ×2 (10:23→15:18)
[2021-08-15] MEDS: Lidocaine 4% 1 each Patch TOP PRN (10:24)
[2021-08-15] MEDS: Allopurinol 100 MG Tab PO SCH (11:42)
[2021-08-15] MEDS ORDERED: oxyCODONE 5 MG Tab PO ONE (12:45)
[2021-08-15] MEDS ORDERED: Warfarin Sliding Scale PO SCH (18:00)
[2021-08-16] MEDS: Acetaminophen 325 MG Tab PO PRN ×2 (00:32→21:02)
[2021-08-16] MEDS: oxyCODONE 5 MG Tab PO PRN ×3 (04:50→23:01)
[2021-08-16] MEDS: Mycophenolate Mofetil 250 MG Cap PO SCH ×2 (08:53→21:03)
[2021-08-16] MEDS: Cefepime 2 GM in Sodium Chloride 0.9% 50 ML IV SCH (08:53)
[2021-08-16] MEDS: Allopurinol 100 MG Tab PO SCH (08:54)
[2021-08-16] MEDS: Metoprolol Succinate 50 MG Tab.ER PO SCH (08:54)
[2021-08-16] MEDS: predniSONE 5 MG Tab PO SCH (08:54)
[2021-08-16] MEDS: Citalopram 20 MG Tab PO SCH (09:05)
[2021-08-16] MEDS: Lidocaine 4% 1 each Patch TOP PRN (09:46)
[2021-08-16] MEDS ORDERED: Warfarin 2.5 MG Tab PO SCH (18:00)
[2021-08-16] MEDS: Thiamine 100 MG Tab PO SCH (21:04)
[2021-08-17] MEDS: Acetaminophen 325 MG Tab PO PRN (04:18)
[2021-08-17] MEDS: Metoprolol Succinate 50 MG Tab.ER PO SCH (08:42)
[2021-08-17] MEDS: Allopurinol 100 MG Tab PO SCH (08:43)
[2021-08-17] MEDS: predniSONE 5 MG Tab PO SCH (08:43)
[2021-08-17] MEDS: Citalopram 20 MG Tab PO SCH (08:43)
[2021-08-17] MEDS: Mycophenolate Mofetil 250 MG Cap PO SCH ×2 (08:44→20:48)
[2021-08-17] MEDS ORDERED: Morphine 2 MG/ML SYRINGE IVPUSH PRN (14:01)
[2021-08-17] MEDS ORDERED: Warfarin 7.5 MG Tab PO SCH (18:00)
[2021-08-17] MEDS: Thiamine 100 MG Tab PO SCH (20:48)
[2021-08-17] MEDS: oxyCODONE 5 MG Tab PO PRN (20:53)
[2021-08-18] MEDS: Acetaminophen 325 MG Tab PO PRN ×3 (00:16→20:03)
[2021-08-18] MEDS: predniSONE 5 MG Tab PO SCH (08:18)
[2021-08-18] MEDS: Citalopram 20 MG Tab PO SCH (08:18)
[2021-08-18] MEDS: Allopurinol 100 MG Tab PO SCH (08:19)
[2021-08-18] MEDS: Metoprolol Succinate 50 MG Tab.ER PO SCH (08:20)
[2021-08-18] MEDS: Mycophenolate Mofetil 250 MG Cap PO SCH ×2 (08:24→20:02)
[2021-08-18] MEDS: oxyCODONE 5 MG Tab PO PRN (11:12)
[2021-08-18] MEDS ORDERED: Warfarin 5 MG Tab PO SCH (18:00)
[2021-08-18] MEDS: Thiamine 100 MG Tab PO SCH (20:02)
[2021-08-19] MEDS: Allopurinol 100 MG Tab PO SCH (09:13)
[2021-08-19] MEDS: Metoprolol Succinate 50 MG Tab.ER PO SCH (09:13)
[2021-08-19] MEDS: Citalopram 20 MG Tab PO SCH (09:13)
[2021-08-19] MEDS: predniSONE 5 MG Tab PO SCH (09:14)
[2021-08-19] MEDS: Tacrolimus 1 MG Cap PO SCH ×2 (09:14→17:27)
[2021-08-19] MEDS: Mycophenolate Mofetil 250 MG Cap PO SCH ×2 (09:14→20:30)
[2021-08-19] MEDS ORDERED: Vancomycin 1 GM, Vancomycin 500 MG in Sodium Chloride 0.9% 500 ML IV ONE (11:00)
[2021-08-19] MEDS ORDERED: Warfarin 4 MG Tab PO ONE (19:00)
[2021-08-19] MEDS: Thiamine 100 MG Tab PO SCH (20:30)
[2021-08-19] MEDS: Acetaminophen 325 MG Tab PO PRN (20:31)
[2021-08-19] MEDS: Vancomycin 1 GM, Vancomycin 250 MG in Sodium Chloride 0.9% 250 ML IV SCH (22:53)
[2021-08-20] MEDS ORDERED: Magnesium Sulfate/Water 4 GM in Premix Bag 1 BAG IV ONE (09:00)
[2021-08-20] MEDS: Tacrolimus 1 MG Cap PO SCH ×2 (09:03→17:26)
[2021-08-20] MEDS: Metoprolol Succinate 50 MG Tab.ER PO SCH (09:04)
[2021-08-20] MEDS: predniSONE 5 MG Tab PO SCH (09:04)
[2021-08-20] MEDS: Mycophenolate Mofetil 250 MG Cap PO SCH ×2 (09:04→20:40)
[2021-08-20] MEDS: Vancomycin 1 GM, Vancomycin 250 MG in Sodium Chloride 0.9% 250 ML IV SCH (13:26)
[2021-08-20] MEDS: oxyCODONE 5 MG Tab PO PRN (16:35)
[2021-08-20] MEDS: cefTRIAXone 2 GM in Sodium Chloride 0.9% 100 ML IV SCH (16:37)
[2021-08-20] MEDS: Thiamine 100 MG Tab PO SCH (20:40)
[2021-08-20] MEDS: Haloperidol 0.5 MG Tab PO SCH (20:40)
[2021-08-21] MEDS: Acetaminophen 325 MG Tab PO PRN ×3 (05:40→20:42)
[2021-08-21] MEDS: Mycophenolate Mofetil 250 MG Cap PO SCH ×2 (09:07→20:36)
[2021-08-21] MEDS: Tacrolimus 1 MG Cap PO SCH ×2 (09:07→17:31)
[2021-08-21] MEDS: predniSONE 5 MG Tab PO SCH (09:08)
[2021-08-21] MEDS: Metoprolol Succinate 50 MG Tab.ER PO SCH (09:08)
[2021-08-21] MEDS: oxyCODONE 5 MG Tab PO PRN (11:17)
[2021-08-21] MEDS ORDERED: Vancomycin 1 GM, Vancomycin 250 MG in Sodium Chloride 0.9% 250 ML IV SCH (13:00)
[2021-08-21] MEDS: cefTRIAXone 2 GM in Sodium Chloride 0.9% 100 ML IV SCH (15:03)
[2021-08-21] MEDS ORDERED: Warfarin 4 MG Tab PO SCH (18:00)
[2021-08-21] MEDS: Thiamine 100 MG Tab PO SCH (20:36)
[2021-08-21] MEDS: Haloperidol 0.5 MG Tab PO SCH (20:36)
[2021-08-22] MEDS ORDERED: Sodium Chloride 0.9% 1,000 ML IV SCH (07:30)
[2021-08-22] MEDS ORDERED: Magnesium Sulfate/Water 2 GM in Premix Bag 1 BAG IV ONE (08:00)
[2021-08-22] MEDS: Acetaminophen 325 MG Tab PO PRN ×3 (08:30→20:20)
[2021-08-22] MEDS: Mycophenolate Mofetil 250 MG Cap PO SCH ×2 (09:34→20:21)
[2021-08-22] MEDS: Tacrolimus 1 MG Cap PO SCH ×2 (09:35→17:34)
[2021-08-22] MEDS: Metoprolol Succinate 50 MG Tab.ER PO SCH (09:36)
[2021-08-22] MEDS: predniSONE 5 MG Tab PO SCH (09:36)
[2021-08-22] MEDS ORDERED: Colchicine 0.6 MG Tab PO ONE (10:30)
[2021-08-22] MEDS: Magnesium Oxide 400 MG Tab PO SCH (11:35)
[2021-08-22] MEDS ORDERED: Colchicine 0.6 MG Tab PO SCH (12:00)
[2021-08-22] MEDS: Colchicine 0.6 MG Tab PO SCH (13:11)
[2021-08-22] MEDS ORDERED: Warfarin 3 MG Tab PO SCH (18:00)
[2021-08-22] MEDS: Thiamine 100 MG Tab PO SCH (20:20)
[2021-08-22] MEDS: Haloperidol 0.5 MG Tab PO SCH (20:20)
[2021-08-23] MEDS ORDERED: Magnesium Sulfate/Water 4 GM in Premix Bag 1 BAG IV ONE (07:19)
[2021-08-23] MEDS: Metoprolol Succinate 50 MG Tab.ER PO SCH (08:44)
[2021-08-23] MEDS: predniSONE 5 MG Tab PO SCH (08:44)
[2021-08-23] MEDS: Mycophenolate Mofetil 250 MG Cap PO SCH ×2 (08:45→20:29)
[2021-08-23] MEDS: Tacrolimus 1 MG Cap PO SCH ×2 (08:45→17:01)
[2021-08-23] MEDS: Acetaminophen 325 MG Tab PO PRN ×2 (08:51→20:28)
[2021-08-23] MEDS ORDERED: Colchicine 0.6 MG Tab PO SCH (09:00)
[2021-08-23] MEDS: Colchicine 0.6 MG Tab PO SCH (11:36)
[2021-08-23] MEDS: Magnesium Oxide 400 MG Tab PO SCH (11:36)
[2021-08-23] MEDS ORDERED: Warfarin 3 MG Tab PO SCH (18:00)
[2021-08-23] MEDS: Thiamine 100 MG Tab PO SCH (20:29)
[2021-08-23] MEDS: Haloperidol 0.5 MG Tab PO SCH (20:29)
[2021-08-24] MEDS: Metoprolol Succinate 50 MG Tab.ER PO SCH (08:42)
[2021-08-24] MEDS: Mycophenolate Mofetil 250 MG Cap PO SCH ×2 (08:42→20:59)
[2021-08-24] MEDS: predniSONE 5 MG Tab PO SCH (08:42)
[2021-08-24] MEDS: Tacrolimus 1 MG Cap PO SCH ×3 (08:42→17:12)
[2021-08-24] MEDS: Lisinopril 5 MG Tab PO SCH (08:43)
[2021-08-24] MEDS: Colchicine 0.6 MG Tab PO SCH (11:33)
[2021-08-24] MEDS: Magnesium Oxide 400 MG Tab PO SCH (11:34)
[2021-08-24] MEDS ORDERED: Enoxaparin 80 MG/0.8 ML Syringe SUBCUT SCH (11:45)
[2021-08-24] MEDS: Warfarin 7.5 MG Tab PO SCH ×2 (16:15→17:12)
[2021-08-24] MEDS: Acetaminophen 325 MG Tab PO PRN ×2 (16:15→20:02)
[2021-08-24] MEDS: Haloperidol 0.5 MG Tab PO SCH (20:37)
[2021-08-24] MEDS: Thiamine 100 MG Tab PO SCH (20:37)
[2021-08-24] MEDS: Enoxaparin 80 MG/0.8 ML Syringe SUBCUT SCH (20:59)
[2021-08-25] MEDS ORDERED: Magnesium Sulfate/Water 4 GM in Premix Bag 1 BAG IV ONE (07:05)
[2021-08-25] MEDS ORDERED: Sodium Chloride 0.45% 1,000 ML IV SCH (07:15)
[2021-08-25] MEDS: Enoxaparin 80 MG/0.8 ML Syringe SUBCUT SCH ×3 (07:48→20:30)
[2021-08-25] MEDS: Tacrolimus 1 MG Cap PO SCH ×2 (07:49→19:14)
[2021-08-25] MEDS: Mycophenolate Mofetil 250 MG Cap PO SCH ×3 (07:49→20:30)
[2021-08-25] MEDS: Metoprolol Succinate 50 MG Tab.ER PO SCH ×2 (07:50→08:15)
[2021-08-25] MEDS: predniSONE 5 MG Tab PO SCH ×2 (07:50→08:14)
[2021-08-25] MEDS: Lisinopril 5 MG Tab PO SCH ×2 (07:50→08:15)
[2021-08-25] MEDS: Acetaminophen 325 MG Tab PO PRN ×2 (08:06→20:29)
[2021-08-25] MEDS: Magnesium Oxide 400 MG Tab PO SCH (11:48)
[2021-08-25] MEDS: Colchicine 0.6 MG Tab PO SCH (11:49)
[2021-08-25] MEDS ORDERED: Warfarin 7.5 MG Tab PO SCH (18:00)
[2021-08-25] MEDS: Thiamine 100 MG Tab PO SCH (20:30)
[2021-08-25] MEDS: Haloperidol 0.5 MG Tab PO SCH (20:30)
[2021-08-26] MEDS: Acetaminophen 325 MG Tab PO PRN ×2 (08:59→20:41)
[2021-08-26] MEDS: predniSONE 5 MG Tab PO SCH (09:00)
[2021-08-26] MEDS: Metoprolol Succinate 50 MG Tab.ER PO SCH (09:00)
[2021-08-26] MEDS: Mycophenolate Mofetil 250 MG Cap PO SCH ×2 (09:01→20:43)
[2021-08-26] MEDS: Tacrolimus 1 MG Cap PO SCH ×2 (09:01→18:10)
[2021-08-26] MEDS: Lisinopril 5 MG Tab PO SCH (09:01)
[2021-08-26] MEDS: Enoxaparin 80 MG/0.8 ML Syringe SUBCUT SCH ×2 (09:03→20:43)
[2021-08-26] MEDS: Magnesium Oxide 400 MG Tab PO SCH (13:23)
[2021-08-26] MEDS ORDERED: traMADol 50 MG Tab PO PRN (15:02)
[2021-08-26] MEDS ORDERED: Warfarin 7.5 MG Tab PO SCH (18:00)
[2021-08-26] MEDS: Thiamine 100 MG Tab PO SCH (20:41)
[2021-08-26] MEDS: Haloperidol 0.5 MG Tab PO SCH (20:43)
[2021-08-27] MEDS: Acetaminophen 325 MG Tab PO PRN ×2 (05:49→21:29)
[2021-08-27] MEDS: Mycophenolate Mofetil 250 MG Cap PO SCH ×2 (08:14→21:28)
[2021-08-27] MEDS: Lisinopril 5 MG Tab PO SCH (08:15)
[2021-08-27] MEDS: Metoprolol Succinate 50 MG Tab.ER PO SCH (08:15)
[2021-08-27] MEDS: predniSONE 5 MG Tab PO SCH (08:15)
[2021-08-27] MEDS: Enoxaparin 80 MG/0.8 ML Syringe SUBCUT SCH ×2 (08:15→21:29)
[2021-08-27] MEDS: Tacrolimus 1 MG Cap PO SCH ×2 (08:18→17:25)
[2021-08-27] MEDS ORDERED: hydrALAZINE 10 MG Tab PO PRN (08:44)
[2021-08-27] MEDS ORDERED: Magnesium Sulfate/Water 2 GM in Premix Bag 1 BAG IV ONE (09:00)
[2021-08-27] MEDS ORDERED: Sodium Chloride 0.45% 1,000 ML ONE (09:43)
[2021-08-27] MEDS: Sodium Chloride 0.45% 1,000 ML IV SCH ×2 (11:17→21:50)
[2021-08-27] MEDS: Magnesium Oxide 400 MG Tab PO SCH (11:30)
[2021-08-27] MEDS ORDERED: Warfarin 7.5 MG Tab PO SCH (18:00)
[2021-08-27] MEDS: Haloperidol 0.5 MG Tab PO SCH (21:28)
[2021-08-27] MEDS: Thiamine 100 MG Tab PO SCH (21:28)
[2021-08-28] MEDS: Metoprolol Succinate 50 MG Tab.ER PO SCH (09:23)
[2021-08-28] MEDS: predniSONE 5 MG Tab PO SCH (09:23)
[2021-08-28] MEDS: Enoxaparin 80 MG/0.8 ML Syringe SUBCUT SCH ×2 (09:23→21:48)
[2021-08-28] MEDS: Acetaminophen 325 MG Tab PO PRN ×3 (09:23→21:47)
[2021-08-28] MEDS: Tacrolimus 1 MG Cap PO SCH ×2 (09:24→17:58)
[2021-08-28] MEDS: Mycophenolate Mofetil 250 MG Cap PO SCH ×2 (09:25→21:48)
[2021-08-28] MEDS ORDERED: Colchicine 0.6 MG Tab PO ONE (10:01)
[2021-08-28] MEDS: Magnesium Oxide 400 MG Tab PO SCH (12:13)
[2021-08-28] MEDS ORDERED: Warfarin 5 MG Tab PO SCH (18:00)
[2021-08-28] MEDS: Haloperidol 0.5 MG Tab PO SCH (21:46)
[2021-08-28] MEDS: Thiamine 100 MG Tab PO SCH (21:46)
[2021-08-29] MEDS: Mycophenolate Mofetil 250 MG Cap PO SCH (08:13)
[2021-08-29] MEDS: Tacrolimus 1 MG Cap PO SCH ×2 (08:14→17:02)
[2021-08-29] MEDS: Metoprolol Succinate 50 MG Tab.ER PO SCH (08:14)
[2021-08-29] MEDS: Acetaminophen 325 MG Tab PO PRN ×2 (08:15→12:10)
[2021-08-29] MEDS: predniSONE 5 MG Tab PO SCH (08:15)
[2021-08-29] MEDS: Enoxaparin 80 MG/0.8 ML Syringe SUBCUT SCH (08:16)
[2021-08-29] MEDS: Lisinopril 5 MG Tab PO SCH (10:41)
[2021-08-29] MEDS: Magnesium Oxide 400 MG Tab PO SCH (12:10)
[2021-08-29 15:11] VITALS: BP 132/93; PULSE 111
[2021-08-29] MEDS ORDERED: Warfarin 7.5 MG Tab PO SCH (18:00)
== END 2021-08-29 18:11 | disposition home or self-care (01) | DRG 699 ==
LOC: JD.ED 22:54 → SUPCPDRO 22:54 → JD.MS 08-13 03:46
PROVIDERS: ADMIT Internal Medicine; ATTEND Internal Medicine
DX: T86.19 Other complication of kidney transplant (principal); D84.9 Immunodeficiency, unspecified; N17.9 Acute kidney failure, unspecified; G93.49 Other encephalopathy; E87.1 Hypo-osmolality and hyponatremia; I25.810 Atherosclerosis of coronary artery bypass graft(s) without angina pectoris; E87.2 Acidosis; L03.115 Cellulitis of right lower limb; Z94.0 Kidney transplant status; M10.341 Gout due to renal impairment, right hand; R79.82 Elevated C-reactive protein (CRP); R79.1 Abnormal coagulation profile; Z79.01 Long term (current) use of anticoagulants; Z86.73 Personal history of transient ischemic attack (TIA), and cerebral infarction without residual deficits; Z95.2 Presence of prosthetic heart valve; Z79.52 Long term (current) use of systemic steroids; Z79.899 Other long term (current) drug therapy; Z88.1 Allergy status to other antibiotic agents; H54.7 Unspecified visual loss; I25.10 Atherosclerotic heart disease of native coronary artery without angina pectoris; E78.00 Pure hypercholesterolemia, unspecified; I10 Essential (primary) hypertension; Z95.1 Presence of aortocoronary bypass graft; K21.9 Gastro-esophageal reflux disease without esophagitis; M19.90 Unspecified osteoarthritis, unspecified site; F32.A Depression, unspecified; E66.9 Obesity, unspecified; Z86.16 Personal history of COVID-19; Z86.19 Personal history of other infectious and parasitic diseases; Z87.891 Personal history of nicotine dependence; Z68.24 Body mass index [BMI] 24.0-24.9, adult
CPT/HCPCS: 36415; 36600; 51702; 70450; 70450-26; 70551; 70551-26; 71045; 71045-26; 80048; 80053; 80076; 80197; 80202; 81001; 81003; 82140; 82803; 82947; 83605; 83735; 83930; 83935; 84145; 84300; 84443; 84484; 84550; 85007; 85025; 85027; 85379; 85610; 85652; 86140; 87040; 92523-GN; 93005; 93010; 94660; 96360; 96361; 97110-GP; 97112-GP; 97116-GP; 97129-GN; 97130-GN; 97162-GP; 99284; 99285-25; A9270-GY; J0133; J0692; J0696; J1650; J2060; J3370; J3411; J3475; J7030; J7040; J7050; J7120; J7507; J7512; Q3014; U0002

== ENCOUNTER 2021-09-26 08:36 | Day surgery (SDC) | payer MEDICAID ==
[~2021-09-26 08:36] MED LIST: Lactated Ringers 1,000 ML IV SCH; Lidocaine 1%/Sod Bicarbonate in NS 8.4% 1 ML Syringe IDERM PRN; Propofol 200 MG/20 ML SDV ONE; Sodium Chloride 0.9% 10 ML Syringe FLUSH PRN; Sodium Chloride 0.9% 10 ML Syringe FLUSH SCH
[2021-09-26] MEDS ORDERED: fentaNYL 100 MCG/2 ML SDV ONE (08:54)
[2021-09-26] MEDS ORDERED: Lactated Ringers 1,000 ML ONE (08:56)
[2021-09-26] MEDS ORDERED: Phenylephrine HCl In 0.9% NaCl 1 MG/10 ML Vial ONE (10:06)
[2021-09-26] MEDS ORDERED: Dexamethasone 4 MG/ML SDV ONE (10:11)
[2021-09-26] MEDS ORDERED: Propofol 200 MG/20 ML SDV ONE (10:29)
[2021-09-26 11:53] VITALS: BP 115/82; PULSE 93
== END 2021-09-26 11:35 | disposition home or self-care (01) ==
LOC: JD.SDS 08:36
PROVIDERS: ATTEND Surgery
DX: Z12.11 Encounter for screening for malignant neoplasm of colon (principal); K29.50 Unspecified chronic gastritis without bleeding; K31.89 Other diseases of stomach and duodenum; K64.8 Other hemorrhoids; K62.1 Rectal polyp; K31.7 Polyp of stomach and duodenum; I12.9 Hypertensive chronic kidney disease with stage 1 through stage 4 chronic kidney disease, or unspecified chronic kidney disease; N18.30 Chronic kidney disease, stage 3 unspecified; D63.1 Anemia in chronic kidney disease; E66.9 Obesity, unspecified; I25.10 Atherosclerotic heart disease of native coronary artery without angina pectoris; K21.9 Gastro-esophageal reflux disease without esophagitis; E78.2 Mixed hyperlipidemia; E83.42 Hypomagnesemia; N25.81 Secondary hyperparathyroidism of renal origin; K62.89 Other specified diseases of anus and rectum; Z86.010 Personal history of colon polyps; Z79.01 Long term (current) use of anticoagulants; Z95.1 Presence of aortocoronary bypass graft; Z98.890 Other specified postprocedural states; Z79.899 Other long term (current) drug therapy; Z79.83 Long term (current) use of bisphosphonates; Z87.891 Personal history of nicotine dependence; Z88.1 Allergy status to other antibiotic agents; Z86.16 Personal history of COVID-19; Z90.49 Acquired absence of other specified parts of digestive tract; Z68.27 Body mass index [BMI] 27.0-27.9, adult
CPT/HCPCS: 36415; 43239; 45380; 85610; J1100; J2704; J3010; J7120

== ENCOUNTER 2024-09-09 16:06 | Emergency (ER) | payer BC, MEDICAID, MEDICARE ==
[2024-09-09] MEDS ORDERED: Sodium Chloride 0.9% 10 ML Syringe FLUSH PRN (16:34)
[2024-09-09 16:47] LABS: BASOPHILS ABSOLUTE AUTO 0.0 K/mm3 (0.0-0.2); BASOPHILS PERCENT AUTO 0.2 % (0.0-1.0); EOSINOPHILS ABSOLUTE AUTO 0.1 K/mm3 (0.0-0.4); EOSINOPHILS PERCENT AUTO 0.7 % (0.0-6.0); IMMATURE GRAN ABSOLUTE AUTO 0.08 K/mm3 (0.00-0.05); IMMATURE GRAN PERCENT AUTO 0.6 % (0.0-0.4); LYMPHOCYTES ABSOLUTE AUTO 1.9 K/mm3 (1.0-4.8); LYMPHOCYTES PERCENT AUTO 14.0 % (24.0-44.0); MEAN PLATELET VOLUME 11.2 fl (9.4-12.4); MONOCYTES ABSOLUTE AUTO 1.5 K/mm3 (0.0-0.8); MONOCYTES PERCENT AUTO 11.0 % (0.0-8.0); NEUTROPHILS ABSOLUTE AUTO 10.0 K/mm3 (1.8-7.7); NEUTROPHILS PERCENT AUTO 73.5 % (41.0-71.0); NRBC ABSOLUTE 0.00 (0.00-0.02); NRBC PERCENT 0.0 % (0.0-0.2); PLATELET COUNT,PLT 177 K/mm3 (150-400); RED BLOOD CELL COUNT 4.89 M/mm3 (4.52-5.90); WHITE BLOOD CELL COUNT,WBC 13.54 K/mm3 (3.9-11.3)
[2024-09-09] MEDS ORDERED: Naloxone 0.4 MG/ML SDV IVPUSH PRN (16:56)
[2024-09-09 17:11] LABS: A/G RATIO 0.9 (1-2); ALANINE AMINOTRANSFERASE,ALT 29.0 U/L (16-63); ASPARTATE AMNIOTRANSFERASE,AST 18.0 U/L (15-37); BILIRUBIN TOTAL 1.1 mg/dL (0.2-1.0); BLOOD UREA NITROGEN,BUN 35.0 mg/dL (7-18); CARBON DIOXIDE,CO2 24.0 mEq/L (21-32); CHLORIDE,CL 101.0 mEq/L (98-107); CREATININE 1.8 mg/dL (0.7-1.3); EST CRCL DRUG DOSING (CG) 44.31 mL/min; ESTIMATED GFR 41.0 mL/min (>60); GLUCOSE RANDOM 111.0 mg/dL (70-99); POTASSIUM,K 4.6 mEq/L (3.5-5.1); PROTEIN TOTAL,TP 8.0 g/dl (6.4-8.2); SODIUM,NA 136.0 mEq/L (136-145)
[2024-09-09] MEDS: Iopamidol 612 MG/ML 100 ML Bottle IVPUSH ONE (17:19)
[2024-09-09] MEDS: Ondansetron 4 MG/2 ML SDV IVPUSH ONE (17:20)
[2024-09-09] MEDS: Sodium Chloride 0.9% 10 ML Syringe FLUSH ONE (17:20)
[2024-09-09 20:21] VITALS: BP 110/87; PULSE 92
== END 2024-09-09 20:18 | disposition home or self-care (01) ==
LOC: JD.ED 16:06
DX: L03.113 Cellulitis of right upper limb (principal); M10.432 Other secondary gout, left wrist; I10 Essential (primary) hypertension; E78.00 Pure hypercholesterolemia, unspecified; E66.9 Obesity, unspecified; Z88.1 Allergy status to other antibiotic agents; Z79.01 Long term (current) use of anticoagulants; Z79.899 Other long term (current) drug therapy; Z86.16 Personal history of COVID-19; Z68.28 Body mass index [BMI] 28.0-28.9, adult
CPT/HCPCS: 36415; 71046; 73201; 80053; 83605; 84550; 85025; 86140; 87040; 96374; 96375; 99284; A9270; J2270; J2405; J7512; Q9967